=== PATIENT | female | born 1990 | race Caucasian/White ===

== ENCOUNTER 2017-03-28 08:55 | Inpatient (IN) | payer BC ==
[2017-03-28 10:04] VITALS: BMI 27.6
--- NOTE | 2017-03-28 11:09 | HP ---
COWS - Scale Resting Pulse: 0= [place] 80 or Below Sweatin= Beads of Sweat on Face Restless Observation: 3= Extraneous Movement Pupil Size: 0= Normal to Room Light Bone or Joint Aches: 4=Acute Joint/Muscle Pain Runny Nose/ Eye Tearin= Nasal Congestion GI Upset > 30mins: 3= Vomiting/Diarrhea Tremor Observation: 1= Tremor [place], Not Seen Yawning Observation: 1= 1-2x During Session Anxiety or Irritability: 2=Irritable/Anxious Goose Flesh Skin: 0=Smooth Skin COWS Score: 18 CIWA Score - CIWA Score Nausea/Vomitin Muscle Tremors: 3 Anxiety: 4-Mod. Anxious/Guarded Agitation: 3 Paroxysmal Sweats: 1-Minimal Palms Moist Orientation: 0-Oriented Tacttile Disturbances: 3-Moderate Itch/Numb/Burn Auditory Disturbances: 0-None Visual Disturbances: 0-None Headache: 2-Mild CIWA-Ar Total Score: 21 Admission ROS BHS - HPI Chief Complaint: WITHDRAWAL SX FROM HEROIN Allergies/Adverse Reactions: Allergies Allergy/AdvReac Type Severity Reaction Status Date / Time No Known Allergies Allergy Verified 03/28/17 10:34 History of Present Illness: 26 Y/O H/FEMALE WITH A HX OF HEROIN, ALCOHOL AND MARIJUANA DEPENDENCE [place]. Exam Limitations: No Limitations - Ebola screening Have you traveled outside of the country in the last 21 days: No (N) Have you had contact with anyone from an Ebola affected area: No Have you been sick,other than usual withdrawal symptoms: No Do you have a fever: No - Review of Systems Constitutional: Chills, Night Sweats, Changes in sleep EENT: reports: Blurred Vision, Tearing, Nose Congestion Respiratory: reports: No Symptoms reported Cardiac: reports: Lightheadedness GI: reports: Constipated, Diarrhea, Nausea, Poor Fluid Intake, Vomiting, Indigestion : reports: Burning, Dysuria Musculoskeletal: reports: Back Pain, Joint Pain, Muscle Pain Neuro: reports: Headache, Tremors, Dizziness Endocrine: reports: No Symptoms Reported Hematology: reports: Anemia Psychiatric: reports: Orientated x3, Anxious, Depressed Other Systems: Reviewed and Negative Patient History - Patient Medical History Hx Anemia: Yes Hx Asthma: No Hx Chronic Obstructive Pulmonary Disease (COPD): No Hx Cardiac Disorders: No Hx Hypertension: No Hx Hypercholesterolemia: No HX Cerebrovascular Accident: No Hx Seizures: No Hx Diabetes: No Hx Gastrointestinal Disorders: Yes (acid reflux) Hx Genitourinary Disorders: No Hx Sexually Transmitted Disorders: No Hx Renal Disease (ESRD): No Hx Depression: Yes Hx Suicide Attempt: No (DENIES) Hx Schizophrenia: No - Patient Surgical History Past Surgical History: No Hx Neurologic Surgery: No Hx Cataract Extraction: No Hx Cardiac Surgery: No Hx Lung Surgery: No Hx Breast Surgery: No Hx Breast Biopsy: No Hx Abdominal Surgery: No Hx Appendectomy: No Hx Cholecystectomy: No Hx Genitourinary Surgery: No Hx Section: No Hx Orthopedic Surgery: No Hx Hysterectomy: No Anesthesia Reaction: No - PPD History Previous Implant?: Yes Documented Results: Negative w/o proof Implanted On Prior R Admission?: No PPD to be Administered?: Yes - Reproductive History Patient is a Female of Child Bearing Age (11 -55 yrs old): Yes Last Menstrual Period: 03/13/17 Patient : No - Smoking Cessation Smoking history: Current every day smoker Have you smoked in the past 12 months: Yes Aproximately how many cigarettes per day: 3 Hx Chewing Tobacco Use: No Initiated information on smoking cessation: Yes 'Breaking Loose' booklet given: 03/28/17 - Substance & Tx. History Hx Alcohol Use: Yes (VODKA) Hx Substance Use: Yes (HEROIN/MARIJUANA) Substance Use Type: Alcohol, Heroin, Marijuana Hx Substance Use Treatment: No - Substances Abused Heroin Route: Inhalation Frequency: Daily Amount used: 4 bags Age of first use: 23 Date of Last Use: 03/27/17 Alcohol-vodka Route: Oral Frequency: Daily Amount used: 1/2 pt. Age of first use: 14 Date of Last Use: 03/25/17 Marijuana Route: Smoking Frequency: Daily Amount used: $50 Age of first use: 14 Date of Last Use: 03/28/17 Family Disease History - Family Disease History Family History: Denies Admission Physical Exam BHS - Vital Signs Vital Signs: Vital Signs - 24 hr 03/28/17 10:01 Temperature 97.6 F Pulse Rate 73 Respiratory 18 Rate Blood Pressure 117/83 - Physical General Appearance: Yes: Moderate Distress, Irritable, Anxious HEENTM: Yes: EOMI, Normocephalic, TERE, Pharynx Normal Respiratory: Yes: Chest Non-Tender, Lungs Clear, Normal Breath Sounds, No Respiratory Distress Neck: Yes: No masses,lesions,Nodules, Supple, Trachea in good position Breast: Yes: Breast Exam Deferred Cardiology: Yes: Regular Rhythm, Regular Rate, S1, S2 Abdominal: Yes: Normal Bowel Sounds, Non Tender, Flat, Soft Genitourinary: Yes: Other (N/C) Back: Yes: Within Normal Limits Musculoskeletal: Yes: full range of Motion, Gait Steady Extremities: Yes: Normal Range of Motion, Non-Tender Neurological: Yes: ruffling hemmer automatic II-XII NML intact, Fully Oriented, Alert, Motor Strength 5/5 Integumentary: Yes: Dry, Warm Lymphatic: Yes: Within Normal Limits - Diagnostic (1) Alcohol dependence with uncomplicated withdrawal Current Visit: Yes Status: Acute (2) Opioid dependence with withdrawal Current Visit: Yes Status: Acute (3) Cannabis dependence, uncomplicated Current Visit: Yes Status: Acute (4) GERD (gastroesophageal reflux disease) Current Visit: Yes Status: Chronic Qualifiers: Esophagitis presence: esophagitis presence not specified Qualified Code(s) : K21.9 - Gastro-esophageal reflux disease without esophagitis Cleared for Admission [facility] - Detox or Rehab [facility] Level of Care: Medically Managed Detox Regimen/Protocol: Methadone/Valium [facility] Breath Alcohol Content Breath Alcohol Content: 0 Urine Pregancy Test - Result Urine Test Results: Negative- NO Line Present Urine Drug Screen - Results Drug Screen Negative: No Urine Drug Screen Results: THC-Marijuana, OPI-Opiates, BZO-Benzodiazepines, MTD- Methadone, OXY-Oxycodone
[2017-03-28] MEDS ORDERED: guaiFENesin/D-METHORPHAN HB 10 ML UNIT-DOSE CUPS PO PRN (11:23)
[2017-03-28] MEDS ORDERED: IBUPROFEN 400 MG TABLET (FP) PO PRN (11:23)
[2017-03-28] MEDS ORDERED: ACETAMINOPHEN 325 MG TABLET (FP) PO PRN (11:23)
[2017-03-28] MEDS ORDERED: LOPERAMIDE HCL 2 MG CAPSULE PO PRN (11:23)
[2017-03-28] MEDS ORDERED: P-EPHED 60MG/TRIPROLIDI 2.5MG TABLET PO PRN (11:23)
[2017-03-28] MEDS ORDERED: NICOTINE POLACRILEX 2 MG GUM BUC PRN (11:23)
[2017-03-28] MEDS ORDERED: MAG HYDROX/AL HYDROX/SIMETH 30 ML UNIT-DOSE CUP PO PRN (11:23)
[2017-03-28] MEDS ORDERED: MAGNESIUM CITRATE 300 ML BOTTLE PO PRN (11:23)
[2017-03-28] MEDS ORDERED: MAGNESIUM HYDROX 2400MG/30ML ORAL SUSPENSION 30 ML CUP PO PRN (11:23)
[2017-03-28] MEDS ORDERED: MENTHOL/PHENOL 1 EACH UD MM PRN (11:23)
[2017-03-28] MEDS ORDERED: diazePAM 5 MG TABLET PO PRN (11:23)
[2017-03-28] MEDS ORDERED: diazePAM 5 MG TABLET PO ONE (11:38)
[2017-03-28] MEDS ORDERED: METHADONE HCL 10 MG TABLET (FOR DETOX USE ONLY) PO ONE ×2 (11:38→23:00)
[2017-03-28] MEDS: NICOTINE 14 MG/24 HOURS TOPICAL PATCH TD SCH (12:29)
[2017-03-28] MEDS: diazePAM 5 MG TABLET PO SCH ×2 (13:01→22:26)
[2017-03-28] MEDS ORDERED: COLLOIDAL OATMEAL 1 BAR EACH TP PRN (13:06)
--- NOTE | 2017-03-28 15:36 | EKG ---
Test Reason : Blood Pressure : / mmHG Vent. Rate : 066 BPM Atrial Rate : 066 BPM P-R Int : 172 ms QRS Dur : 094 ms QT Int : 416 ms P-R-T Axes : 065 -42 032 degrees QTc Int : 436 ms NORMAL SINUS RHYTHM WITH SINUS ARRHYTHMIA POSSIBLE LEFT ATRIAL ENLARGEMENT LEFT AXIS DEVIATION ABNORMAL ECG NO PREVIOUS ECGS AVAILABLE Confirmed by HATTIE COOPER MD ([id number]) on 03/28/2017 3:35:58 PM Referred By: Confirmed By:HATTIE COOPER MD
[2017-03-28 15:40] LABS: HEMATOCRIT 38.8 % (32.4-45.2); HEMOGLOBIN 12.8 GM/dL (10.7-15.3); MCH 29.6 pg (25.7-33.7); MCHC 32.9 g/dl (32.0-36.0); MEAN CELL VOLUME 89.8 fl (80-96); MEAN PLT VOLUME 8.9 fl (7.5-11.1); PLATELET COUNT 199 K/MM3 (134-434); RBC 4.32 M/mm3 (3.60-5.2); RDW 14.3 % (11.6-15.6); WHITE BLOOD COUNT 7.1 K/mm3 (4.0-10.0)
[2017-03-28 15:50] LABS: ALBUMIN 4.1 g/dl (3.4-5.0); ANION GAP 7 (8-16); BLOOD UREA NITROGEN 11 mg/dL (7-18); CALCIUM 9.5 mg/dL (8.5-10.1); CHLORIDE 101 mmol/L (98-107); CO2 29 mmol/L (21-32); GLUCOSE,RANDOM 111 mg/dL (74-106); POTASSIUM 3.6 mmol/L (3.5-5.1); SODIUM 137 mmol/L (136-145)
[2017-03-28 15:54] LABS: ALK PHOS 59 U/L (45-117); BILIRUBIN,TOTAL 0.6 mg/dL (0.2-1.0); CREATININE 0.9 mg/dL (0.55-1.02); SGOT/AST 20 U/L (15-37); SGPT/ALT 24 U/L (12-78); TOT PROT 7.3 g/dl (6.4-8.2)
[2017-03-28 15:57] LABS: URINE APPEARANCE CLOUDY; URINE BILIRUBIN NEGATIVE (NEGATIVE); URINE BLOOD NEGATIVE (NEGATIVE); URINE COLOR YELLOW; URINE GLUCOSE (UA) NEGATIVE (NEGATIVE); URINE KETONE 1+ (NEGATIVE); URINE NITRITE NEGATIVE (NEGATIVE); URINE PROTEIN NEGATIVE (NEGATIVE); URINE UROBILINOGEN NEGATIVE mg/dL (0.2-1.0)
[2017-03-28] MEDS: HYDROCORTISONE 1% TOPICAL CREAM 30 GM TUBE TP SCH ×2 (16:00→22:25)
[2017-03-28 16:14] LABS: URINE LEUK ESTERASE 3+ (NEGATIVE)
--- NOTE | 2017-03-28 17:41 | CONSULT ---
[facility] Psychiatric Consult - Data Date of interview: 03/28/17 Admission source: [facility] Identifying data: Pt. is a 26 year old female, single, mother of four, and currently unemployed. This is patient's first admission to [facility]. Pt. admitted to to for heroin, alcohol, and marijuana dependence. Substance Abuse History: Following information confirmed by Tracy Prescott: Smoking Cessation. Smoking history: Current every day smoker. Have you smoked in the past 12 months: Yes. Aproximately how many cigarettes per day: 3. Hx Chewing Tobacco Use: No. Initiated information on smoking cessation: Yes. 'Breaking Loose' booklet given: 03/28/17. - Substance & Tx. History. Hx Alcohol Use: Yes (VODKA). Hx Substance Use: Yes (HEROIN/MARIJUANA). Substance Use Type: Alcohol, Heroin, Marijuana. Hx Substance Use Treatment: No. - Substances Abused. Heroin. Route: Inhalation. Frequency: Daily. Amount used: 4 bags. Age of first use: 23. Date of Last Use: 03/27/17. Alcohol-vodka. Route: Oral. Frequency: Daily. Amount used: 1/2 pt. Age of first use: 14. Date of Last Use: 03/25/17. Marijuana. Route: Smoking. Frequency: Daily. Amount used: $50. Age of first use: 14. Date of Last Use: 03/28/17 Medical History: Anemia, Acid reflux Psychiatric History: Pt. denies h/o psychatric hospitalizations, suicide attempts and OPC. Pt. self reports insomnia and depression. Physical/Sexual Abuse/Trauma History: Denies. Mental Status Exam - Mental Status Exam Alert and Oriented to: Time, Place, Person Cognitive Function: Good Patient Appearance: Well Groomed Mood: Sad Affect: Flat Patient Behavior: Sedated Speech Pattern: Appropriate Voice Loudness: Normal Thought Process: Goal Oriented Thought Disorder: Not Present Hallucinations: Denies Suicidal Ideation: Denies Homicidal Ideation: Denies Insight/Judgement: Poor Sleep: Poorly Appetite: Fair Muscle strength/Tone: Normal Gait/Station: Normal Psychiatric Findings - Problem List ([place] 1, 2,3) (1) Opioid dependence with withdrawal Current Visit: Yes Status: Acute (2) Alcohol dependence with uncomplicated withdrawal Current Visit: Yes Status: Acute (3) Cannabis dependence, uncomplicated Current Visit: Yes Status: Acute (4) Insomnia Current Visit: Yes Status: Acute - Initial Treatment Plan Initial Treatment Plan: Psychoeducation provided. Detoxification in progress. Trazodone 50mg qhs ordered for insomnia. Benefits and side effects discussed.Verbal consent given. Will continue to monitor.
[2017-03-28] MEDS ORDERED: traZODone HCL 50 MG TABLET (FP) PO SCH (22:00)
[2017-03-28] MEDS ORDERED: THIAMINE HCL 100 MG TABLET (FP) PO SCH (22:00)
[2017-03-29] MEDS: diazePAM 5 MG TABLET PO SCH ×2 (05:57→13:51)
[2017-03-29 06:38] VITALS: TEMP 97.7
--- NOTE | 2017-03-29 06:42 | PN ---
[facility] Progress Note Note: responded to rapid respond patient found on the floor near nursing station with seizure movement four extremities no post ictal period,pulse ox 97 alert bgm 90 bp 158/60.p 139,r18,t 97.9 no injury noted heent normal lung clear abdomen soft,no distension no pain or tenderness movement all extremities pulse oximeter ativan 2 mgs im given seizure lasted 2 mins, impression seizure possible withdrawal opioid dependence with withdrawal alcohol dependence with withdrawal gerd patient to be transferred to er at [facility] for evaluation and treatment,to be transported by [facility],spoke with Kian Bolanos at [facility]
--- NOTE | 2017-03-29 07:58 | PN ---
S Progress Note Note: patient was found on the floor,having seizure in response to rapid respond,no witness of fall,will place patient on fall protocol 2,fall precaution
[2017-03-29 08:07] LABS: SICKLE CELL SCREEN NEGATIVE (NEGATIVE)
[2017-03-29 09:14] VITALS: BP 158/60; PULSE 132
[2017-03-29] MEDS ORDERED: METHADONE HCL 10 MG TABLET (FOR DETOX USE ONLY) PO SCH (10:00)
[2017-03-29] MEDS ORDERED: PRENATAL VITAMINS W/ FOLIC ACID TABLET (FP) PO SCH (10:00)
[2017-03-29] MEDS: NICOTINE 14 MG/24 HOURS TOPICAL PATCH TD SCH (11:02)
[2017-03-29] MEDS: HYDROCORTISONE 1% TOPICAL CREAM 30 GM TUBE TP SCH (11:02)
[2017-03-29] MEDS ORDERED: FLU VACCINE QUAD 60 MCG/0.5 ML (MDV 17-18) IM ONE (12:00)
[2017-03-30] MEDS ORDERED: METHADONE HCL 5 MG TABLET (FOR DETOX USE ONLY) PO SCH (10:00)
[2017-03-30] MEDS ORDERED: diazePAM 5 MG TABLET PO SCH (10:00)
--- NOTE | 2017-03-30 18:36 | DS ---
[facility] Detox Discharge Summary Admission Date: 03/28/17 Discharge Date: 03/29/17 - History Present History: Alcohol Dependence, Opioid Dependence, Sedative Dependence Additional Comments: PATIENT WAS TANSFERRED AND ADMITTED TO [facility] DETOX FOR "SEIZURES SHAHRAM ACTIVITY BUT NEEDED TO BE ADMITTED BECUSE SHE WAS A HAM TO HERSELF AND OTHERS. Pertinent Past History: ANXIETY, DEPRESSION, INSOMNIA, NICOTINE DEPENDENCD - Physical Exam Results Vital Signs: Vital Signs Temperature 97.7 F 03/29/17 06:30 Pulse Rate 132 H 03/29/17 06:30 Respiratory Rate 26 H 03/29/17 06:30 Blood Pressure 158/60 03/29/17 06:30 O2 Sat by Pulse Oximetry (%) Laboratory Tests 03/28/17 03/28/17 03/28/17 11:00 11:30 11:30 WBC 7.1 RBC 4.32 Hgb 12.8 Hct 38.8 MCV 89.8 MCH 29.6 MCHC 32.9 RDW 14.3 Plt Count 199 MPV 8.9 Sickle Cell Screen Negative Sodium 137 Potassium 3.6 Chloride 101 Carbon Dioxide 29 Anion Gap 7 L BUN 11 Creatinine 0.9 Creat Clearance w eGFR > 60 POC Glucometer Random Glucose 111 H Calcium 9.5 Total Bilirubin 0.6 AST 20 ALT 24 Alkaline Phosphatase 59 Total Protein 7.3 Albumin 4.1 Urine Color Urine Appearance Urine pH Ur Specific [place] Urine Protein Urine Glucose (UA) Urine Ketones Urine Blood Urine Nitrite Urine Bilirubin Urine Urobilinogen RPR Titer HIV 1&2 Antibody Screen Negative HIV P24 Antigen Negative 03/28/17 03/28/17 03/29/17 11:30 13:00 06:26 WBC RBC Hgb Hct MCV MCH MCHC RDW Plt Count MPV Sickle Cell Screen Sodium Potassium Chloride Carbon Dioxide Anion Gap BUN Creatinine Creat Clearance w eGFR POC Glucometer 94 Random Glucose Calcium Total Bilirubin AST ALT Alkaline Phosphatase Total Protein Albumin Urine Color Yellow Urine Appearance Cloudy Urine pH 6.0 Ur Specific [place] 1.021 Urine Protein Negative Urine Glucose (UA) Negative Urine Ketones 1+ H Urine Blood Negative Urine Nitrite Negative Urine Bilirubin Negative Urine Urobilinogen Negative RPR Titer Nonreactive HIV 1&2 Antibody Screen HIV P24 Antigen Pertinent Admission Physical Exam Findings: CANDELARIA SX - Treatment Hospital Course: Detox Protocol Followed Patient has Accepted a Rehab Referral to: NO - Medication Discharge Medications: Ambulatory Orders Unobtainable [Unobtainable] 03/29/17 - Diagnosis (1) Agitation states as acute reaction to exceptional (gross) stress Status: Acute (2) Delirium Status: Acute (3) Alcohol dependence with uncomplicated withdrawal Status: Acute (4) Cannabis dependence, uncomplicated Status: Acute (5) Opioid dependence with withdrawal Status: Acute (6) GERD (gastroesophageal reflux disease) Status: Chronic Qualifiers: Esophagitis presence: esophagitis presence not specified Qualified Code(s) : K21.9 - Gastro-esophageal reflux disease without esophagitis - AMA Did Patient Leave Against Medical Advice: No (SHOULD RETURN TO [facility] TO COMPLEE DETOX WHE MEDICALLYS TABLE)
[2017-04-01] MEDS ORDERED: diazePAM 5 MG TABLET PO SCH (10:00)
[2017-04-01] MEDS ORDERED: METHADONE HCL 10 MG TABLET (FOR DETOX USE ONLY) PO SCH (10:00)
[2017-04-02] MEDS ORDERED: METHADONE HCL 5 MG TABLET (FOR DETOX USE ONLY) PO SCH (06:00)
== END 2017-03-29 21:05 | disposition short-term general hospital (02) | DRG 773 ==
LOC: YASAS 08:55 → Y6N 11:37
PROVIDERS: ADMIT Internal Medicine; ATTEND Internal Medicine
PROC: HZ2ZZZZ Detoxification Services for Substance Abuse Treatment (ICD-10-PCS; principal; 2017-03-28)
DX: F11.23 Opioid dependence with withdrawal (principal); F10.230 Alcohol dependence with withdrawal, uncomplicated; F12.20 Cannabis dependence, uncomplicated; R41.0 Disorientation, unspecified; R45.1 Restlessness and agitation; K21.9 Gastro-esophageal reflux disease without esophagitis
CPT/HCPCS: 36415; 80053; 81003; 81015; 85027; 85660; 86593; 87389; 93005; 93010

== ENCOUNTER 2017-03-29 07:17 | Inpatient (IN) | payer BC ==
[2017-03-29] MEDS ORDERED: LORazepam 2 MG/ML SDV VIAL ONE ×4 (07:26→13:42)
[2017-03-29] MEDS ORDERED: HALOPERIDOL LACTATE 5 MG/ML ONE ×3 (07:26→13:35)
[2017-03-29] MEDS ORDERED: HALOPERIDOL LACTATE 5 MG/ML IM ONE ×3 (07:39→13:41)
[2017-03-29 08:21] LABS: BASO % 0.8 % (0-2.0); EOS % 1.1 % (0-4.5); HEMATOCRIT 43.5 % (32.4-45.2); LYMPH % 38.1 % (8-40); MCH 28.9 pg (25.7-33.7); MCHC 32.3 g/dl (32.0-36.0); MEAN CELL VOLUME 89.5 fl (80-96); MEAN PLT VOLUME 8.6 fl (7.5-11.1); MONO % 7.4 % (3.8-10.2); NEUT % 52.6 % (42.8-82.8); PLATELET COUNT 234 K/MM3 (134-434); RBC 4.86 M/mm3 (3.60-5.2); RDW 14.4 % (11.6-15.6); WHITE BLOOD COUNT 7.1 K/mm3 (4.0-10.0)
--- NOTE | 2017-03-29 08:41 | PDOC ---
History of Present Illness - General Chief Complaint: Seizure Stated Complaint: SEIZURE Time Seen by Provider: 03/29/17 07:37 History Source: Patient Exam Limitations: Clinical Condition - History of Present Illness Initial Comments: 03/29/17 08:44 Patient is a 26F with history of alcohol and heroin abuse here today complaining of a seizure while in rehab. Patient reportedly fell to the floor and had seizure like activity with no post-ictal period. Vitals stable, sugar normal. While in the ED, patient exhibited bizarre behavior including inducing vomiting with her hand and ambulating around the ED after taking her pants off. Patient complained of abdominal pain. Unable to obtain further history due to clinical condition. 5 versed IM given in the field. Past History - Past Medical History Allergies/Adverse Reactions: Allergies Allergy/AdvReac Type Severity Reaction Status Date / Time No Known Allergies Allergy Verified 03/29/17 09:00 Home Medications: Ambulatory Orders Unobtainable [Unobtainable] 03/29/17 Anemia: Yes Asthma: No Cardiac Disorders: No CVA: No COPD: No Diabetes: No GI Disorders: Yes (acid reflux) Disorders: No HTN: No Hypercholesterolemia: No Kidney Stones: No Seizures: No - Surgical History Abdominal Surgery: No Appendectomy: No Cardiac Surgery: No Cholecystectomy: No Lung Surgery: No Neurologic Surgery: No Orthopedic Surgery: No - Suicide/Smoking/Psychosocial Hx Smoking History: Unknown if ever smoked Have you smoked in the past 12 months: Yes Number of Cigarettes Smoked Daily: 3 Information on smoking cessation initiated: No 'Breaking Loose' booklet given: 03/28/17 Hx Alcohol Use: Yes (VODKA) Drug/Substance Use Hx: Yes (HEROIN/MARIJUANA) Substance Use Type: Alcohol, Heroin, Marijuana Hx Substance Use Treatment: No Review of Systems - Review of Systems Able to Perform ROS?: No (2/2 clinical condition) *Physical Exam - Vital Signs Last Vital Signs Temp Pulse Resp BP Pulse Ox 120 H 26 H 138/90 100 03/29/17 07:20 03/29/17 07:20 03/29/17 07:20 03/29/17 07:20 - Physical Exam Comments: 03/29/17 08:48 GENERAL: Awake, alert, in acute distress HEAD: No signs of trauma, normocephalic, atraumatic EYES: PERRLA, EOMI, sclera anicteric, conjunctiva clear ENT: Auricles normal inspection, hearing grossly normal, nares patent, oropharynx clear without exudates. Moist mucosa LUNGS: No distress, speaks full sentences, clear to auscultation bilaterally HEART: Regular rate and rhythm, normal S1 and S2, no murmurs, rubs or gallops, peripheral pulses normal and equal bilaterally. ABDOMEN: Soft, nontender, normoactive bowel sounds. No guarding, no rebound. No masses EXTREMITIES: Normal inspection, Normal range of motion, no edema. No clubbing or cyanosis. NEUROLOGICAL: Cranial nerves II through XII grossly intact. Normal speech, normal gait, no focal sensorimotor deficits SKIN: Warm, Dry, normal turgor, no rashes or lesions noted. Procedures - Intubation Time of Intubation: 14:30 Intubation Method: orotracheal Blade used: Mac Tube Size (Fr): 7.0 Medications: Etomidate, Succinylcholine Tube position @ lip (cm): 22 Tube position confirmed by: Direct visualization, CO2 detector, Chest x-ray, Breath sounds Breath Sounds after Intubation: equal Intubation Complications: no complications Post Intubation Xray: Yes (appropriately placed) ED Treatment Course - LABORATORY CBC & Chemistry Diagram: 03/29/17 07:30 03/29/17 07:30 - RADIOLOGY Radiology Studies Ordered: Category Date Time Status ABDOMEN & PELVIS CT W/O CONTR [CT] Stat CT Scan 03/29/17 08:[address] WITHOUT CONTRAST [CT] Stat CT Scan 03/29/17 08:09 Ordered Medical Decision Making - Critical Care Time Total Critical Care Time (minutes): 90 Critical Care Statement: The care of this patient involved high complexity decision making to prevent further life threatening deterioration of the patient 's condition and/or to evaluate & treat vital organ system(s) failure or risk of failure. - Medical Decision Making 03/29/17 08:51 26F with history of alcohol and heroin abuse here today with altered mental status. Vital signs stable, notable for tachycardia. Patient causing self harm by inducing vomiting. Placed in restraints, given 5 haldol IM and 2 ativan IM. Patient remained agitated, IV access placed, labs drawn. Given additional 2 ativan IV. Remained agitated. EKG done, showed normal QTc interval. Given addition 5 haldol IM and 2 ativan IV. Patient sedated. EKG shows normal sinus rhythm, normal rate, left axis deviation, messy baseline due to patient movement. Questionable st depression in II, V4, V5. No st elevations. 03/29/17 09:58 Laboratory Tests 03/29/17 03/29/17 03/29/17 07:30 07:30 07:30 WBC 7.1 Hgb 14.0 Hct 43.5 Plt Count 234 Sodium 138 Potassium 3.9 BUN 7 D Creatinine 0.9 Lactic Acid Serum , Qual Negative Alcohol, Quantitative 03/29/17 03/29/17 07:30 07:30 WBC Hgb Hct Plt Count Sodium Potassium BUN Creatinine Lactic Acid 3.3 H* Serum , Qual Alcohol, Quantitative < 5.0 CBC normal. CMP normal. Lactate positive to 3.3. Alcohol negatie. Preg negative. Trop, tox, CTs pending. 03/29/17 10:10 Laboratory Tests 03/29/17 07:30 Troponin I < 0.02 Trop negative. 03/29/17 12:[address] negative. Abdominal/pelvis CT shows no right kidney, otherwise normal. Patient through herself on the floor, simulating another seizure. Placed in restraints given more medication. 03/29/17 14:54 Patient was given methadone in order to manage her withdrawal in attempt to placate her. Was not successful. Patient broke restraints multiple times. Multiple attempts at sedation were attempted, including 14mg total of ativan and 10mg of haldol in total. Patient was still agitated and a risk to herself and staff. Threatened and bit at staff. Patient was goal oriented during this time and not simply confused. Patient was RSI for her safety with 20 etomidate and 100 succ. 7.0 tube placed 22 at the lip. Confirmed with ETCO2 and bilateral breath sounds. Confirmed with CXR. Sedated with propofol drip. Admitted to the ICU via Tracy Moffett. 03/29/17 15:[address] Hendrix. *DC/Admit/Observation/Transfer Diagnosis at time of Disposition: icu admit, Delirium - Discharge Dispostion Condition at time of disposition: Critical - Referrals - Patient Instructions - Post Discharge Activity
[2017-03-29 09:06] LABS: ALCOHOL < 5.0 mg/dl (0-5)
[2017-03-29 09:09] LABS: ALBUMIN 4.3 g/dl (3.4-5.0); ANION GAP 9 (8-16); BILIRUBIN,TOTAL 0.8 mg/dL (0.2-1.0); BLOOD UREA NITROGEN 7 mg/dL (7-18); CALCIUM 9.3 mg/dL (8.5-10.1); CHLORIDE 106 mmol/L (98-107); CO2 23 mmol/L (21-32); CREATININE 0.9 mg/dL (0.55-1.02); GLUCOSE,RANDOM 92 mg/dL (74-106); POTASSIUM 3.9 mmol/L (3.5-5.1); SGOT/AST 16 U/L (15-37); SGPT/ALT 24 U/L (12-78); SODIUM 138 mmol/L (136-145); TOT PROT 7.5 g/dl (6.4-8.2)
[2017-03-29 09:10] LABS: ALK PHOS 67 U/L (45-117)
[2017-03-29] MEDS ORDERED: SODIUM CHLORIDE 0.9% 1000 ML INFUS.BAG IV ONE (10:00)
[2017-03-29 10:11] LABS: ACETAMINOPHEN < 2.000 ug/ml (10.0-30.0); SALICYLATE < 4.0 mg/dl (0.0-30.0)
--- NOTE | 2017-03-29 11:15 | PDOC ---
Attending Attestation - HPI HPI: 03/29/17 11:22 The patient is a 26 year old female with a significant PMH of opioid and alcohol abuse, now at [facility], who presents to the emergency department via EMS after being found on the floor with pseudo-seizure like activity secondary to alcohol/opioid withdrawal that lasted approximately 2 minutes early this morning. As per [facility], there was no postictal period and no injury noted. The patient received 5mL of Versed on EMS but continued to be agitated. The patient today is complaining of nausea and abdominal pain. At presentation, the patient is not following commands or answering questions appropriately. Allergies: NKA Past surgical history: None reported. Social history: Alcohol and opioid use, at [facility]. No reported cigarette use. - Physicial Exam PE: 03/29/17 11:23 Vitals: Triage vital signs reviewed General Appearance: Well nourished, well developed Head: Atraumatic Eyes: Pupils equal reactive round, extraocular movement intact Neck: Supple; No nuchal rigidity Chest Wall: Nontender Cardiac: Regular rate and rhythm, no murmurs, no rubs, no gallops Lungs: Clear to auscultation bilateral, good air movement bilaterally Abdomen: Soft, nondistended, normal bowel sounds, nontender to palpation Genitourinary: Extremities: Full range of motion to all extremities, no cyanosis, clubbing, or edema Skin: Warm and dry, no rashes or lesions, no rash, no petechiae Neuro: (+) Alcohol/drug withdrawal with pseudo-seizure activity. Cranial Nerves 2-12 grossly intact, Strength intact to all extremities, Sensation intact to all extremities, gait normal Psych: (+) Agitated. (+) Not following commands. - Medical Decision Making 03/29/17 11:23 The patient is a 26 year old female with a significant PMH of opioid and alcohol abuse, now at [facility], who presents to the emergency department via EMS after being found on the floor with pseudo-seizure like activity that lasted approximately 2 minutes early this morning. Plan Psych consult Labs: Drug screen, HCG, UA Cardio: EKG Meds: Haloperidol injection, Ativan, Normal saline Imaging: Abdomen and Pelvis CT w/o contrast Reported by: Dr. Montero Reviewed by: Dr. Tolentino Impression: No definite CT findings of acute pathology are identified. Imaging: Head CT w/o contrast Reported by: Dr. Montero Reviewed by: Dr. Tolentino Impression: Negative exam. No discrete noncontrast CT pathology. <Kristina Keith - Last Filed: 03/29/17 15:55> - Resident Resident Name: Shreyas Asencio - ED Attending Attestation I have performed the following: I have examined & evaluated the patient, The case was reviewed & discussed with the resident, I agree w/resident's findings & plan, Exceptions are as noted - Critical Care Time Total Critical Care Time: 145 Critical Care Statement: The care of this patient involved high complexity decision making to prevent further life threatening deterioration of the patient 's condition and/or to evaluate & treat vital organ system(s) failure or risk of failure. - Medical Decision Making Patient with severe agitation. Several attempts of made to calm patient down with medications unsuccessfully. Multiple pseudosiezures, (they stop immediately when talking to patient) She has attempted several times to bite staff self-induced vomiting vomit on staff members. Because of this self- injurious behavior and attempts to injure staff she has also required physical restraints. Multiple attempts have been made by staff using medications to calm patient down unsuccessfully. At this time patient has been seen and evaluated by psychiatry. There is no acute psychiatric illness requiring inpatient psychiatric hospitalization at this time per psychiatric consultation. Her agitation and behavioral disturbances are most likely secondary to withdrawal / drug seeking behavior. She is not safe for transfer back to [facility]. At this point she'll require medical admission for PRN Ativan. Regarding her abdominal pain patient states she has had this abdominal pain for a while. Patient states that whenever she withdraws from heroin she often has similar abdominal pain. She is constantly requesting narcotic pain medication. We have performed a CAT scan of her abdomen there were no acute findings. Reevaluation: Patient asked to go to the bathroom was escorted by tech on watch after leaving bathroom patient threw herself on floor at 1227pm. No head injury. I help the pt up and escorted her to bed. No injuries identified Reevaluation: Patient still complaining her stomach hurts requesting her methadone. In an attempt to de-escalate the situation, and possibly treat the withdrawal component of her pain, her daily dose of methadone was ordered Reevaluation: Despite receiving her daily methadone patient continued to demand pain medication became verbally and physically aggressive towards staff again, then attempted to bite it security administrator and punch staff. Additional 4 mg Ativan ordered additional 5 mg Haldol IM ordered Reevaluation 1:45 PM despite multiple attempts at medications to calm patient, patient remains agitated, high risk of harm to self and others. Additional Ativan ordered At this time patient has received a total of 15 mg of Haldol IM, and 12 mg of Ativan IV. The acute cause of her agitation and delirium appears to be secondary to withdrawal from alcohol and heroin. Her head CT, abdominal CT, and laboratory analysis are unremarkable her charts from the rehabilitation facility were reviewed. At this time despite our best attempts to calm patient and resolve her agitation and aggressiveness, her attempt to harm staff and injure herself by fighting and throwing herself around persists. She remains a high risk to herself and others. Decision made to intubate patient for sedation and to protect airway for safety of herself and others. Patient intubated successfully see procedure note We will admit to ICU for further management. Psychiatry follow-up. Reevaluation: Case discussed with rehab medicine, recommends Fentanyl to aid in opiod withdrawal component. Fentanyl gtt and bolus ordered 03/29/17 16:56 <Kehinde Tolentino - Last Filed: 03/29/17 17:04> Heart Score/ECG Review #1 03/29/17 11:23 EKG performed at [8:30] demonstrates rate of [101], rhythm of [tachycardic]. No T wave inversions, no ST elevations.Isolated ST depression in lead 2, V4 and V5. #2 03/29/17 15:57 EKG performed at [14:48] demonstrates rate of [104], rhythm of [tachycardic]. <Kristina Keith - Last Filed: 03/29/17 15:55>
[2017-03-29] MEDS ORDERED: METOCLOPRAMIDE HCL INJECTION 10 MG/2 ML VIAL IVPB ONE (11:24)
[2017-03-29] MEDS ORDERED: METOCLOPRAMIDE HCL INJECTION 10 MG/2 ML VIAL ONE (11:30)
--- NOTE | 2017-03-29 12:35 | CON.PSY ---
Psychiatry Consult Chief Complaint: Patient sent from [facility] for Pseudo Seizures.History of Pain med use. malka is a poor Historian.Displaying acute agitation and aggressive behaviour. Symptoms: reports: Impulsivity, Conduct Problems, Oppositionalism, Hyperactivity - Previous Psychiatric Treatment Outpatient: None, Less than 6 mos ago - Previous Substance Abuse Treatment Outpatient: Less than 6 mos ago Inpatient: Within the last 12 months - Reason for Previous Treatment Reason for Previous Treatment: Heroin or Other Narcotics, Prescription Drug, Other Drugs - Allergies Allergies: Allergies Allergy/AdvReac Type Severity Reaction Status Date / Time No Known Allergies Allergy Verified 03/29/17 09:00 - Current Living Status Usual Living Arrangement: Alone - Current Mental Status Evaluation Appearance: Disheveled Attitude: Belligerent - Affect Affect: Expansive Appropriateness: Not Appropriate - Mood Mood: Angry - Speech/Language Expressive: Coherent - Psychomotor Activity Psychomotor Activity: Agitated - Thought Process Thought Process: Intact - Thought Content Hallucinations: Absent Delusions: Absent - Self Perception Self Perception: No Impairment - Cognition Attention: Alert Orientation: Time Memory, Immediate Recall: Intact Memory, Short Term: 2/3 Memory, Remote with Promptin/3 - Concentration Serial Sevens Intact: No Simple Calculations Intact: No - Abstraction Judgement: Severely Impaired - Insight Insight: Impaired - Impulse Control Impulse Control: Severly Impaired - Suicidal Ideation Suicidal Ideation: No - Homicidal Ideation Homicidal Ideation: No Assessment/Plan 1) patient nay need admission to Medicine to Complete detox. 2) continue with ativan IM and Iv as needed. 3) Pain med seeking behaviour.
[2017-03-29] MEDS ORDERED: METHADONE HCL 10 MG TABLET PO ONE (12:53)
[2017-03-29] MEDS ORDERED: METHADONE HCL 10 MG TABLET ONE (13:02)
[2017-03-29] MEDS ORDERED: diazePAM CARPU-JECT 10 MG/2 ML DISP.SYRIN IVPUSH ONE (13:32)
[2017-03-29] MEDS ORDERED: ETOMIDATE 40 MG/20 ML VIAL IVPUSH ONE (13:58)
[2017-03-29] MEDS ORDERED: SUCCINYLCHOLINE CHLORIDE 200 MG/10 ML VIAL IVPUSH ONE ×2 (13:59→14:30)
[2017-03-29] MEDS ORDERED: RAPID SEQUENCE INTUBATION KIT NR ONE (14:03)
[2017-03-29] MEDS: PROPOFOL 1,000,000 MCG/100 ML VIAL IVPUSH SCH (14:15)
[2017-03-29] MEDS ORDERED: PROPOFOL 1,000,000 MCG/100 ML VIAL ONE (14:16)
--- NOTE | 2017-03-29 14:29 | HP ---
CHIEF COMPLAINT: PCP: HISTORY OF PRESENT ILLNESS: 26 year-old female with a PMH significant for polysubstance abuse, anemia, acid reflux, and depression. Patient presented to [facility] on 03/28/17 for detox. She was screened by Dr. Dee who observed patient at that time to be A&Ox3, sad mood, flat affect. This morning patient observed at [facility] to have psuedo- seizure type activity with no postictal period. Patient was transported to ED. While in the ED, patient complained of nausea and abdominal pain. She made numerous demands for pain medication. She was observed self-inducing vomiting with her hand. She ambulated around the ED after taking her pants off. She threw herself on the floor. She tried several times to bite and punch the staff. She had multiple pseudoseizures which stopped immediately when talking to the patient. She was seen by psychiatry Dr. Serra who recommended admission for detox. Dr. Serra also judged patient to be engaging in pain medication-seeking behavior. All attempts to calm the patient were unsuccessful , including Haldol IM 15mg (total) and Ativan IV 12mg (total), Her delirium, agitation, and withdrawal symptoms remained at such a heightened level that the decision was made to intubate the patient to protect her airway, for the safety of herself, and for the safety of others. Recent Travel: Unknown PAST MEDICAL HISTORY Polysubstance abuse PAST SURGICAL HISTORY: None reported Social History (taken from chart) Smoking: current every day Alcohol: daily vodka (last drink 03/25/17) Drugs: heroin (inhalation 4 bags daily last use 03/27/17), marijuana Family History: Allergies No Known Allergies Allergy (Verified 03/29/17 09:00) HOME MEDICATIONS: Home Medications Medication Instructions Recorded Unobtainable [Unobtainable] 03/29/17 REVIEW OF SYSTEMS Unobtainable PHYSICAL EXAMINATION Vital Signs - 24 hr 03/29/17 03/29/17 03/29/17 07:20 08:10 11:27 Pulse Rate 120 H Pulse Rate [ 92 H Apical] Pulse Rate [ 78 Left] Respiratory 26 H 16 18 Rate Blood Pressure 138/90 Blood Pressure 131/77 134/87 [Right Arm] O2 Sat by Pulse 100 100 100 Oximetry (%) GENERAL/NEURO: Sedated. Intubated. PULM: mechanical breath sounds CV: S1, S2, rrr ABD: soft, not tender, not distended, normoactive bowel sounds Upper ext: 2+ pulses, warm, well-perfused, no edema Lower ext: 2+ pulses, warm, well-perfused, no edema : recinos catheter, clear urine Laboratory Results - last 24 hr 03/29/17 03/29/17 03/29/17 07:30 07:30 07:30 WBC 7.1 RBC 4.86 Hgb 14.0 Hct 43.5 MCV 89.5 MCH 28.9 MCHC 32.3 RDW 14.4 Plt Count 234 MPV 8.6 Neutrophils % 52.6 Lymphocytes % 38.1 Monocytes % 7.4 Eosinophils % 1.1 Basophils % 0.8 Sodium 138 Potassium 3.9 Chloride 106 Carbon Dioxide 23 D Anion Gap 9 BUN 7 D Creatinine 0.9 Creat Clearance w eGFR > 60 Random Glucose 92 Lactic Acid Calcium 9.3 Total Bilirubin 0.8 D AST 16 ALT 24 Alkaline Phosphatase 67 Creatine Kinase 404 H Creatine Kinase Index 0.4 CK-MB (CK-2) 1.88 Troponin I < 0.02 Total Protein 7.5 Albumin 4.3 Serum , Qual Negative Salicylates Acetaminophen Alcohol, Quantitative 03/29/17 03/29/17 03/29/17 07:30 07:30 08:32 WBC RBC Hgb Hct MCV MCH MCHC RDW Plt Count MPV Neutrophils % Lymphocytes % Monocytes % Eosinophils % Basophils % Sodium Potassium Chloride Carbon Dioxide Anion Gap BUN Creatinine Creat Clearance w eGFR Random Glucose Lactic Acid 3.3 H* Calcium Total Bilirubin AST ALT Alkaline Phosphatase Creatine Kinase Cancelled Creatine Kinase Index CK-MB (CK-2) Troponin I Cancelled Total Protein Albumin Serum , Qual Salicylates < 4.0 Acetaminophen < 2.000 L Alcohol, Quantitative < 5.0 03/29/17 13:21 WBC RBC Hgb Hct MCV MCH MCHC RDW Plt Count MPV Neutrophils % Lymphocytes % Monocytes % Eosinophils % Basophils % Sodium Potassium Chloride Carbon Dioxide Anion Gap BUN Creatinine Creat Clearance w eGFR Random Glucose Lactic Acid 1.0 Calcium Total Bilirubin AST ALT Alkaline Phosphatase Creatine Kinase Creatine Kinase Index CK-MB (CK-2) Troponin I Total Protein Albumin Serum , Qual Salicylates Acetaminophen Alcohol, Quantitative ASSESSMENT/PLAN 26 year-old female with a PMH significant for polysubstance abuse, admitted for severe agitation and delirium secondary to acute alcohol and opiate withdrawal. Acute alcohol and opiate withdrawal --patient acknowledged recent alcohol and heroin use when screened at [facility] on 03/28 --urine tox positive for opiates, methadone, benzos, and marijuana --extreme agitation observed in ED --intubated and sedated to protect airway --propofol drip --psych consult --detox consult DVT prophylaxis: subq heparin Dispo: requires ICU level care. Full code. Dispo: Visit type - Emergency Visit Emergency Visit: Yes ED Registration Date: 03/29/17 Care time: The patient presented to the Emergency Department on the above date and was hospitalized for further evaluation of their emergent condition. - New Patient This patient is new to me today: Yes Date on this admission: 03/29/17 - Critical Care Critical Care patient: Yes Total Critical Care Time (in minutes): 35 Critical Care Statement: The care of this patient involved high complexity decision making to prevent further life threatening deterioration of the patient 's condition and/or to evaluate & treat vital organ system(s) failure or risk of failure.
--- NOTE | 2017-03-29 14:50 | CONSULT ---
Consult Detox [facility] Reason for Current Admission/Consult: polysubstance use and acute agitation Referred by:: Tracy Moffett NP - History History of Present Illness: 26 yo f with h/o polysubstance use was being detoxed at [facility] when she developed seizures like activity and was transferred to [facility] ED for evaluation wherre she became a danger to herself and others requiring chemical restraints and intubation in the ED. Unable to obtain any further history from patient at this time - History Source History Provided By: Patient, Medical Record, Caregiver Limitations to Obtaining History: Intubated - Alcohol/Substance Use Hx Alcohol Use: Yes (VODKA) Hx Substance Use: Yes (heroin) Hx Substance Use Treatment: Yes (detox [facility]) - Past Medical History ...LMP: 03/13/17 - Significant Medical Findings: 26 yo f with w opioid use diorder and chronic alcoholism transferred [facility] activity became a danger to herself and others requiring sedation and intubation in ED, now unresponsive to be transferred to ICU for monitoring. on fentanyl drip Assessment Plan - Diagnosis (1) Agitation states as acute reaction to exceptional (gross) stress Status: Acute (2) Alcohol dependence with uncomplicated withdrawal Status: Acute (3) Cannabis dependence, uncomplicated Status: Acute (4) Opioid dependence with withdrawal Status: Acute (5) GERD (gastroesophageal reflux disease) Status: Chronic Qualifiers: Esophagitis presence: esophagitis presence not specified Qualified Code(s) : K21.9 - Gastro-esophageal reflux disease without esophagitis - Plan Plan: chart reveiwed, imaging and labs reviewed, case discussed with medial team. Patient is being transferred to ICU for care, when extubated would restart alcohol and opioid detox from the beginning as she will have been receiving high doses of opioids and benzodiazepines for sedation. Will follow. David Morales MD [phone] - Medication Detox Regimen/Protocol: Not Applicable
[2017-03-29 14:52] LABS: ARTERIAL BLD GAS O2 SATURATION 99.5 % (90-98.9); ARTERIAL BLOOD GAS BASE EXCESS -1.8 meq/l (-2-2); ARTERIAL BLOOD GAS PCO2 38.2 mmHg (35-45); ARTERIAL BLOOD GAS pH 7.39 (7.35-7.45); CARBOXYHEMOGLOBIN 0.7 gm% (0.5-2.0)
[2017-03-29 14:55] LABS: ALLENS TEST POSITIVE
[2017-03-29] MEDS ORDERED: fentaNYL CITRATE/PF 1,000 MCG/20 ML AMPUL IVPUSH ONE ×2 (15:17→15:35)
[2017-03-29 15:19] LABS: URINE APPEARANCE CLEAR; URINE BILIRUBIN NEGATIVE (NEGATIVE); URINE BLOOD NEGATIVE (NEGATIVE); URINE COLOR LTYELLOW; URINE GLUCOSE (UA) NEGATIVE (NEGATIVE); URINE KETONE NEGATIVE (NEGATIVE); URINE LEUK ESTERASE TRACE (NEGATIVE); URINE NITRITE NEGATIVE (NEGATIVE); URINE PROTEIN NEGATIVE (NEGATIVE); URINE UROBILINOGEN NEGATIVE mg/dL (0.2-1.0)
[2017-03-29 15:20] LABS: HCG,QUALITATIVE URINE NEGATIVE
[2017-03-29] MEDS ORDERED: PROPOFOL 200 MG/20 ML VIAL IVPUSH ONE (15:20)
[2017-03-29 15:21] LABS: URINE MUCUS RARE
[2017-03-29 15:28] LABS: COCAINE, UR NEGATIVE ng/ml (CUTOFF=300); METHADONE, UR POSITIVE ng/ml (CUTOFF=300); OPIATES, URI POSITIVE ng/ml (CUTOFF=300); PHENCYCLIDINE,URINE NEGATIVE ng/ml (CUTOFF=25); URINE AMPHETAMINES NEGATIVE ng/ml (CUTOFF=500); URINE BARBITURATES NEGATIVE ng/ml (CUTOFF=200); URINE BENZODIAZEPINES POSITIVE ng/ml (CUTOFF=200)
[2017-03-29] MEDS ORDERED: fentaNYL CITRATE 250 MCG/5 ML VIAL ONE (15:42)
[2017-03-29] MEDS ORDERED: FENTANYL INJECTION 500 MCG in DEXTROSE 5%-WATER - 90 ML IVPB SCH (15:45)
[2017-03-29] MEDS: DEXTROSE 5%-NORMAL SALINE 1,000 ML IV SCH (16:08)
[2017-03-29 18:09] VITALS: BMI 25.0
--- NOTE | 2017-03-29 20:28 | CONSULT ---
Consult - text type - Consultation Consultation Note: PULM/CCM Pt seen ane examined in ICU CC: agitated delerium HPI: 26F with history of alcohol and heroin abuse presented to ED from [facility] rehab where she was undergoing detox (unclear how long she had been inhouse there) who is now intubated in ICU for inability to protect her airway. Pt had pseudo-sz, agitation, and combative behavior while at rehab, prompting EMS activation. Pt received benzos from EMS in an attempt to manage her. She was brought to ED still agitated, c/o abd pain, N/V. In ED pt normotensive, tachycardic, afebrile. She was kicking, biting, and thrashing. CT head, CTAP performed without finding acute pathology. She did not adequately respond to multiple doses of Ativan and Haldol. Labs were unrevealing. She was ultimately intubated by ED staff without difficulty. She was transferred to ICU for further care. She was sedated with propofol, VS wnl. Recent Travel: Unknown PAST MEDICAL HISTORY Polysubstance abuse PAST SURGICAL HISTORY: None reported Social History (taken from chart) Smoking: current every day Alcohol: daily vodka (last drink 03/25/17) Drugs: heroin (inhalation 4 bags daily last use 03/27/17), marijuana Family History: Allergies No Known Allergies Allergy (Verified 03/29/17 09:00) HOME MEDICATIONS: Home Medications Medication Instructions Recorded Unobtainable [Unobtainable] 03/29/17 REVIEW OF SYSTEMS Unobtainable due to clinical status PE: Gen: Deeply sedated, intubated young woman HEENT: Pin[place], reactive, orally intubated PULM: clear, anterior CV: RRR, no m/r/g appreciated ABD; soft, +BS Ext: w/w/p, no edema Neuro: withdrawal to noxious stimuli EKG: Sinus, normal axis, normal interval, isolated ST depression. QTC 433 CBCD WBC 7.1 K/mm3 (4.0-10.0) 03/29/17 07:30 RBC 4.86 M/mm3 (3.60-5.2) 03/29/17 07:30 Hgb 14.0 GM/dL (10.7-15.3) 03/29/17 07:30 Hct 43.5 % (32.4-45.2) 03/29/17 07:30 MCV 89.5 fl (80-96) 03/29/17 07:30 MCHC 32.3 g/dl (32.0-36.0) 03/29/17 07:30 RDW 14.4 % (11.6-15.6) 03/29/17 07:30 Plt Count 234 K/MM3 (134-434) 03/29/17 07:30 MPV 8.6 fl (7.5-11.1) 03/29/17 07:30 CMP Sodium 138 mmol/L (136-145) 03/29/17 07:30 Potassium 3.9 mmol/L (3.5-5.1) 03/29/17 07:30 Chloride 106 mmol/L (98-107) 03/29/17 07:30 Carbon Dioxide 23 mmol/L (21-32) D 03/29/17 07:30 Anion Gap 9 (8-16) 03/29/17 07:30 BUN 7 mg/dL (7-18) D 03/29/17 07:30 Creatinine 0.9 mg/dL (0.55-1.02) 03/29/17 07:30 Creat Clearance w eGFR > 60 (>60) 03/29/17 07:30 Random Glucose 92 mg/dL (74-106) 03/29/17 07:30 Calcium 9.3 mg/dL (8.5-10.1) 03/29/17 07:30 Total Bilirubin 0.8 mg/dL (0.2-1.0) D 03/29/17 07:30 AST 16 U/L (15-37) 03/29/17 07:30 ALT 24 U/L (12-78) 03/29/17 07:30 Alkaline Phosphatase 67 U/L (45-117) 03/29/17 07:30 Total Protein 7.5 g/dl (6.4-8.2) 03/29/17 07:30 Albumin 4.3 g/dl (3.4-5.0) 03/29/17 07:30 CARDIAC ENZYMES Creatine Kinase 2451 IU/L (26-192) H 03/29/17 19:45 Troponin I 0.02 ng/ml (0.00-0.05) 03/29/17 19:45 CTAP: negative CT: negative CXR: no infiltrate or pneumothorax A/ 26 y/o woman with severe agitated delerium in setting of detox/withdrawal from polypharm/ETOH abuse intubated for airway protection P/ -Vent support, wean to extubation -cont propofol overnight -will add antipsychotics standing with plan on symptom triggered/CIWA for etoh withdraawl once extubated -cont methadone at daily dose -daily EKG for QTC -Psych and Detox following -GI prophy while intubated -DVT prophy Oscar Lopez ACNP [phone]
[2017-03-29] MEDS: MUPIROCIN 2% TOPICAL OINTMENT FOR DECOLONIZATION NS SCH (21:36)
[2017-03-29] MEDS: HEPARIN NA (PORCINE) 5,000 UNITS/ML 1ML VIAL SQ SCH (21:37)
[2017-03-29] MEDS: CHLORHEXIDINE GLUCONATE 4% CLEANSER FOR DECOLONIZATION TP SCH (21:37)
[2017-03-29] MEDS: QUEtiapine FUMARATE 25 MG TABLET (FP) NGT SCH (22:56)
[2017-03-30] MEDS: PROPOFOL 1,000,000 MCG/100 ML VIAL IVPUSH SCH ×2 (02:00→14:00)
[2017-03-30] MEDS: DEXTROSE 5%-NORMAL SALINE 1,000 ML IV SCH ×4 (05:09→17:33)
[2017-03-30] MEDS: HEPARIN NA (PORCINE) 5,000 UNITS/ML 1ML VIAL SQ SCH ×3 (05:09→22:16)
[2017-03-30] MEDS ORDERED: METHADONE HCL 10 MG TABLET GT SCH (06:00)
[2017-03-30 06:55] LABS: BASO % 0.5 % (0-2.0); EOS % 1.1 % (0-4.5); HEMATOCRIT 33.3 % (32.4-45.2); HEMOGLOBIN 11.1 GM/dL (10.7-15.3); LYMPH % 37.5 % (8-40); MCH 29.8 pg (25.7-33.7); MCHC 33.3 g/dl (32.0-36.0); MEAN CELL VOLUME 89.5 fl (80-96); MEAN PLT VOLUME 8.6 fl (7.5-11.1); MONO % 8.4 % (3.8-10.2); NEUT % 52.5 % (42.8-82.8); PLATELET COUNT 192 K/MM3 (134-434); RBC 3.72 M/mm3 (3.60-5.2); RDW 14.5 % (11.6-15.6); WHITE BLOOD COUNT 6.6 K/mm3 (4.0-10.0)
[2017-03-30 07:18] LABS: ALBUMIN 3.1 g/dl (3.4-5.0); ANION GAP 8 (8-16); BLOOD UREA NITROGEN 5 mg/dL (7-18); CALCIUM 8.5 mg/dL (8.5-10.1); CHLORIDE 113 mmol/L (98-107); CO2 25 mmol/L (21-32); GLUCOSE,RANDOM 93 mg/dL (74-106); INR 1.15 (0.82-1.09); MAGNESIUM 1.8 mg/dL (1.8-2.4); POTASSIUM 3.5 mmol/L (3.5-5.1); SODIUM 146 mmol/L (136-145)
[2017-03-30 07:21] LABS: ACTIVATED PTT 27.8 SECONDS (26.9-34.4)
[2017-03-30 07:23] LABS: ALK PHOS 46 U/L (45-117); BILIRUBIN,TOTAL 0.3 mg/dL (0.2-1.0); CREATININE 0.7 mg/dL (0.55-1.02); PHOSPHOROUS 4.4 mg/dL (2.5-4.9); SGOT/AST 41 U/L (15-37); SGPT/ALT 22 U/L (12-78); TOT PROT 5.3 g/dl (6.4-8.2)
--- NOTE | 2017-03-30 09:25 | PN ---
Physical Exam: SUBJECTIVE: Patient seen and examined at bedside. Extubated. Sitting up in bed. Tearful that she almost . Wants to see mother and sister. OBJECTIVE: Vital Signs Period Temp Pulse Resp BP Sys/Sharma Pulse Ox Last 24 Hr 97.8 F-99.7 F 68-120 14-24 106-156/63-99 50-100 GENERAL: The patient is awake, alert, and fully oriented. Tearful, depressed affect. LUNGS: Breath sounds equal, clear to auscultation bilaterally, no wheezes, no crackles, no accessory muscle use. HEART: Regular rate and rhythm, S1, S2 without murmur, rub or gallop. ABDOMEN: Soft, nontender, nondistended, normoactive bowel sounds, no guarding, no rebound EXTREMITIES: 2+ pulses, warm, well-perfused, no edema. NEUROLOGICAL: Cranial nerves II through XII grossly intact. Normal speech, gait not observed. Laboratory Results - last 24 hr 03/29/17 03/29/17 03/29/17 07:30 07:30 07:30 WBC RBC Hgb Hct MCV MCH MCHC RDW Plt Count MPV Neutrophils % Lymphocytes % Monocytes % Eosinophils % Basophils % PT with INR INR PTT (Actin FS) Puncture Site ABG pH ABG pCO2 at Pt Temp ABG pO2 at Pt Temp ABG HCO3 ABG O2 Sat (Measured) ABG O2 Content ABG Base Excess Gigi Test Carboxyhemoglobin Methemoglobin O2 Delivery Device Oxygen Flow Rate Vent Rate Mechanical Rate PEEP Pressure Support Vent Sodium 138 Potassium 3.9 Chloride 106 Carbon Dioxide 23 D Anion Gap 9 BUN 7 D Creatinine 0.9 Creat Clearance w eGFR > 60 Random Glucose 92 Lactic Acid Calcium 9.3 Phosphorus Magnesium Total Bilirubin 0.8 D AST 16 ALT 24 Alkaline Phosphatase 67 Creatine Kinase 404 H Creatine Kinase Index 0.4 CK-MB (CK-2) 1.88 Troponin I < 0.02 Total Protein 7.5 Albumin 4.3 Lipase Serum , Qual Negative Urine Color Urine Appearance Urine pH Ur Specific [place] Urine Protein Urine Glucose (UA) Urine Ketones Urine Blood Urine Nitrite Urine Bilirubin Urine Urobilinogen Ur Leukocyte Esterase Urine WBC (Auto) Urine RBC (Auto) Urine Mucus Urine HCG, Qual Salicylates < 4.0 Opiates Screen Methadone Screen Acetaminophen < 2.000 L Barbiturate Screen Phencyclidine Screen Ur Amphetamines Screen MDMA (Ecstasy) Screen Benzodiazepines Screen Cocaine Screen U Marijuana (THC) Screen 03/29/17 03/29/17 03/29/17 08:32 13:21 14:30 WBC RBC Hgb Hct MCV MCH MCHC RDW Plt Count MPV Neutrophils % Lymphocytes % Monocytes % Eosinophils % Basophils % PT with INR INR PTT (Actin FS) Puncture Site Left radial ABG pH 7.39 ABG pCO2 at Pt Temp 38.2 ABG pO2 at Pt Temp 234.0 H* ABG HCO3 22.4 ABG O2 Sat (Measured) 99.5 H ABG O2 Content 18.6 ABG Base Excess -1.8 Gigi Test Positive Carboxyhemoglobin 0.7 Methemoglobin 0.7 O2 Delivery Device Mech vent Oxygen Flow Rate 50 Vent Rate 14 Mechanical Rate Yes PEEP 0.0 Pressure Support Vent 400 Sodium Potassium Chloride Carbon Dioxide Anion Gap BUN Creatinine Creat Clearance w eGFR Random Glucose Lactic Acid 1.0 Calcium Phosphorus Magnesium Total Bilirubin AST ALT Alkaline Phosphatase Creatine Kinase Cancelled Creatine Kinase Index CK-MB (CK-2) Troponin I Cancelled Total Protein Albumin Lipase Serum , Qual Urine Color Urine Appearance Urine pH Ur Specific [place] Urine Protein Urine Glucose (UA) Urine Ketones Urine Blood Urine Nitrite Urine Bilirubin Urine Urobilinogen Ur Leukocyte Esterase Urine WBC (Auto) Urine RBC (Auto) Urine Mucus Urine HCG, Qual Salicylates Opiates Screen Methadone Screen Acetaminophen Barbiturate Screen Phencyclidine Screen Ur Amphetamines Screen MDMA (Ecstasy) Screen Benzodiazepines Screen Cocaine Screen U Marijuana (THC) Screen 03/29/17 03/29/17 03/29/17 15:01 15:01 19:45 WBC RBC Hgb Hct MCV MCH MCHC RDW Plt Count MPV Neutrophils % Lymphocytes % Monocytes % Eosinophils % Basophils % PT with INR INR PTT (Actin FS) Puncture Site ABG pH ABG pCO2 at Pt Temp ABG pO2 at Pt Temp ABG HCO3 ABG O2 Sat (Measured) ABG O2 Content ABG Base Excess Gigi Test Carboxyhemoglobin Methemoglobin O2 Delivery Device Oxygen Flow Rate Vent Rate Mechanical Rate PEEP Pressure Support Vent Sodium Potassium Chloride Carbon Dioxide Anion Gap BUN Creatinine Creat Clearance w eGFR Random Glucose Lactic Acid Calcium Phosphorus Magnesium Total Bilirubin AST ALT Alkaline Phosphatase Creatine Kinase 2451 H Creatine Kinase Index 0.4 CK-MB (CK-2) 11.018 H Troponin I 0.02 Total Protein Albumin Lipase Serum , Qual Urine Color Ltyellow Urine Appearance Clear Urine pH 7.0 Ur Specific [place] 1.011 Urine Protein Negative Urine Glucose (UA) Negative Urine Ketones Negative Urine Blood Negative Urine Nitrite Negative Urine Bilirubin Negative Urine Urobilinogen Negative Ur Leukocyte Esterase Trace Urine WBC (Auto) <1 Urine RBC (Auto) 23 Urine Mucus Rare Urine HCG, Qual Negative Salicylates Opiates Screen Positive Methadone Screen Positive Acetaminophen Barbiturate Screen Negative Phencyclidine Screen Negative Ur Amphetamines Screen Negative MDMA (Ecstasy) Screen Negative Benzodiazepines Screen Positive Cocaine Screen Negative U Marijuana (THC) Screen Positive 03/29/17 03/29/17 03/30/17 19:45 19:45 05:10 WBC 6.6 RBC 3.72 D Hgb 11.1 D Hct 33.3 D MCV 89.5 MCH 29.8 MCHC 33.3 RDW 14.5 Plt Count 192 MPV 8.6 Neutrophils % 52.5 Lymphocytes % 37.5 Monocytes % 8.4 Eosinophils % 1.1 Basophils % 0.5 PT with INR INR PTT (Actin FS) Puncture Site ABG pH ABG pCO2 at Pt Temp ABG pO2 at Pt Temp ABG HCO3 ABG O2 Sat (Measured) ABG O2 Content ABG Base Excess Gigi Test Carboxyhemoglobin Methemoglobin O2 Delivery Device Oxygen Flow Rate Vent Rate Mechanical Rate PEEP Pressure Support Vent Sodium Potassium Chloride Carbon Dioxide Anion Gap BUN Creatinine Creat Clearance w eGFR Random Glucose Lactic Acid 0.8 Calcium Phosphorus Magnesium Total Bilirubin AST ALT Alkaline Phosphatase Creatine Kinase Creatine Kinase Index CK-MB (CK-2) Troponin I Total Protein Albumin Lipase 102 Serum , Qual Urine Color Urine Appearance Urine pH Ur Specific [place] Urine Protein Urine Glucose (UA) Urine Ketones Urine Blood Urine Nitrite Urine Bilirubin Urine Urobilinogen Ur Leukocyte Esterase Urine WBC (Auto) Urine RBC (Auto) Urine Mucus Urine HCG, Qual Salicylates Opiates Screen Methadone Screen Acetaminophen Barbiturate Screen Phencyclidine Screen Ur Amphetamines Screen MDMA (Ecstasy) Screen Benzodiazepines Screen Cocaine Screen U Marijuana (THC) Screen 03/30/17 03/30/17 05:10 05:10 WBC RBC Hgb Hct MCV MCH MCHC RDW Plt Count MPV Neutrophils % Lymphocytes % Monocytes % Eosinophils % Basophils % PT with INR 13.00 H INR 1.15 H PTT (Actin FS) 27.8 Puncture Site ABG pH ABG pCO2 at Pt Temp ABG pO2 at Pt Temp ABG HCO3 ABG O2 Sat (Measured) ABG O2 Content ABG Base Excess Gigi Test Carboxyhemoglobin Methemoglobin O2 Delivery Device Oxygen Flow Rate Vent Rate Mechanical Rate PEEP Pressure Support Vent Sodium 146 H Potassium 3.5 Chloride 113 H Carbon Dioxide 25 Anion Gap 8 BUN 5 L D Creatinine 0.7 D Creat Clearance w eGFR > 60 Random Glucose 93 Lactic Acid Calcium 8.5 Phosphorus 4.4 Magnesium 1.8 Total Bilirubin 0.3 D AST 41 H D ALT 22 Alkaline Phosphatase 46 D Creatine Kinase Creatine Kinase Index CK-MB (CK-2) Troponin I Total Protein 5.3 L D Albumin 3.1 L D Lipase Serum , Qual Urine Color Urine Appearance Urine pH Ur Specific [place] Urine Protein Urine Glucose (UA) Urine Ketones Urine Blood Urine Nitrite Urine Bilirubin Urine Urobilinogen Ur Leukocyte Esterase Urine WBC (Auto) Urine RBC (Auto) Urine Mucus Urine HCG, Qual Salicylates Opiates Screen Methadone Screen Acetaminophen Barbiturate Screen Phencyclidine Screen Ur Amphetamines Screen MDMA (Ecstasy) Screen Benzodiazepines Screen Cocaine Screen U Marijuana (THC) Screen Active Medications Generic Name Dose Route Start Last Admin Trade Name Jayna PRN Reason Stop Dose Admin Chlorhexidine Gluconate 1 applic 03/29/17 22:00 03/29/17 21:37 Hibiclens For Decolonization - TP 1 applic HS ANGELINA Administration Heparin Sodium (Porcine) 5,000 unit 03/29/17 22:00 03/30/17 05:09 Heparin - SQ 5,000 unit TID ANGELINA Administration Propofol 1,000,000 mcg in 100 mls @ 1.769 mls/hr 03/29/17 14:00 03/30/17 02: 00 Diprivan - IVPUSH 40 mcg/kg/min TITR ANGELINA 14.152 mls/hr Protocol Administration 5 MCG/KG/MIN Dextrose/Sodium Chloride 1,000 mls @ 125 mls/hr 03/29/17 15:00 03/30/17 05:09 D5-Ns - IV 125 mls/hr ASDIR ANGELINA Administration Methadone HCl 20 mg 03/30/17 06:00 Dolophine - PO DAILY@0600 ANGELINA Mupirocin 1 applic 03/29/17 22:00 03/29/17 21:36 Bactroban Ointment (For Decolonization) - NS 04/03/17 21:59 1 applic BID ANGELINA Administration Quetiapine Fumarate 50 mg 03/29/17 22:00 03/29/17 22:56 Seroquel - NGT 50 mg BID ANGELINA Administration ASSESSMENT/PLAN 26 year-old female with a PMH significant for polysubstance abuse, admitted for severe agitation and delirium secondary to acute alcohol and opiate withdrawal. Acute alcohol and opiate withdrawal --patient acknowledged recent alcohol and heroin use when screened at [facility] on 03/28 --urine tox positive for opiates, methadone, benzos, and marijuana --extreme agitation observed in ED --intubated and sedated to protect airway --extubated this morning --continue methadone, seroquel --detox consult DVT prophylaxis: subq heparin Dispo: requires ICU level care. Full code. Visit type - Emergency Visit Emergency Visit: Yes ED Registration Date: 03/29/17 Care time: The patient presented to the Emergency Department on the above date and was hospitalized for further evaluation of their emergent condition. - New Patient This patient is new to me today: No - Critical Care Critical Care patient: Yes Total Critical Care Time (in minutes): 35 Critical Care Statement: The care of this patient involved high complexity decision making to prevent further life threatening deterioration of the patient 's condition and/or to evaluate & treat vital organ system(s) failure or risk of failure.
[2017-03-30] MEDS: QUEtiapine FUMARATE 25 MG TABLET (FP) NGT SCH (09:28)
[2017-03-30] MEDS: MUPIROCIN 2% TOPICAL OINTMENT FOR DECOLONIZATION NS SCH ×2 (09:53→22:18)
--- NOTE | 2017-03-30 11:54 | PN ---
Progress Note (short form) - Note Progress Note: PULM/CCM Progress note 24HR: remained sedated overnight ready for extubation this am improved agitation on seroquel Pt seen ane examined in ICU CC: agitated delerium HPI: 26F with history of alcohol and heroin abuse presented to ED from [facility] where she was undergoing detox (unclear how long she had been inhouse there) who is now intubated in ICU for inability to protect her airway. Recent Travel: Unknown PAST MEDICAL HISTORY Polysubstance abuse PAST SURGICAL HISTORY: None reported Social History (taken from chart) Smoking: current every day Alcohol: daily vodka (last drink 03/25/17) Drugs: heroin (inhalation 4 bags daily last use 03/27/17), marijuana Family History: Allergies No Known Allergies Allergy (Verified 03/29/17 09:00) HOME MEDICATIONS: Home Medications Medication Instructions Recorded Unobtainable [Unobtainable] 03/29/17 REVIEW OF SYSTEMS Unobtainable due to clinical status PE: Gen: awake, follows simple commands HEENT: [place], reactive, orally intubated PULM: clear, anterior CV: RRR, no m/r/g appreciated ABD; soft, +BS Ext: w/w/p, no edema Neuro: withdrawal to noxious stimuli EKG: Sinus, normal axis, normal interval, isolated ST depression. QTC 433 CBCD CBCD WBC 6.6 K/mm3 (4.0-10.0) 03/30/17 05:10 RBC 3.72 M/mm3 (3.60-5.2) D 03/30/17 05:10 Hgb 11.1 GM/dL (10.7-15.3) D 03/30/17 05:10 Hct 33.3 % (32.4-45.2) D 03/30/17 05:10 MCV 89.5 fl (80-96) 03/30/17 05:10 MCHC 33.3 g/dl (32.0-36.0) 03/30/17 05:10 RDW 14.5 % (11.6-15.6) 03/30/17 05:10 Plt Count 192 K/MM3 (134-434) 03/30/17 05:10 MPV 8.6 fl (7.5-11.1) 03/30/17 05:10 CMP Sodium 146 mmol/L (136-145) H 03/30/17 05:10 Potassium 3.5 mmol/L (3.5-5.1) 03/30/17 05:10 Chloride 113 mmol/L (98-107) H 03/30/17 05:10 Carbon Dioxide 25 mmol/L (21-32) 03/30/17 05:10 Anion Gap 8 (8-16) 03/30/17 05:10 BUN 5 mg/dL (7-18) L D 03/30/17 05:10 Creatinine 0.7 mg/dL (0.55-1.02) D 03/30/17 05:10 Creat Clearance w eGFR > 60 (>60) 03/30/17 05:10 Random Glucose 93 mg/dL (74-106) 03/30/17 05:10 Calcium 8.5 mg/dL (8.5-10.1) 03/30/17 05:10 Total Bilirubin 0.3 mg/dL (0.2-1.0) D 03/30/17 05:10 AST 41 U/L (15-37) H D 03/30/17 05:10 ALT 22 U/L (12-78) 03/30/17 05:10 Alkaline Phosphatase 46 U/L (45-117) D 03/30/17 05:10 Total Protein 5.3 g/dl (6.4-8.2) L D 03/30/17 05:10 Albumin 3.1 g/dl (3.4-5.0) L D 03/30/17 05:10 CARDIAC ENZYMES Creatine Kinase 2451 IU/L (26-192) H 03/29/17 19:45 Troponin I 0.02 ng/ml (0.00-0.05) 03/29/17 19:45 CT: negative CXR: no infiltrate or pneumothorax A/ 26 y/o woman with severe agitated delerium in setting of detox/withdrawal from polypharm/ETOH abuse intubated for airway protection P/ -extubate now -will add antipsychotics standing with plan on symptom triggered/CIWA for etoh withdraawl once extubated -cont methadone at daily dose?, confirm with detox -daily EKG for QTC -Psych and Detox following -DVT prophy -ok for floor post extubation Oscar Lopez ACNP [id number]
--- NOTE | 2017-03-30 13:22 | EKG ---
Test Reason : Blood Pressure : / mmHG Vent. Rate : 080 BPM Atrial Rate : 080 BPM P-R Int : 162 ms QRS Dur : 084 ms QT Int : 398 ms P-R-T Axes : 069 -30 028 degrees QTc Int : 459 ms NORMAL SINUS RHYTHM LEFT AXIS DEVIATION ABNORMAL ECG WHEN COMPARED WITH ECG OF 29-MAR-2017 14:48, NO SIGNIFICANT CHANGE WAS FOUND Confirmed by JADA HOLM MD ([id number]) on 03/30/2017 1:22:23 PM Referred By: Denise CHOI Confirmed By:JADA HOLM MD
--- NOTE | 2017-03-30 13:31 | EKG ---
Test Reason : Blood Pressure : / mmHG Vent. Rate : 104 BPM Atrial Rate : 104 BPM P-R Int : 156 ms QRS Dur : 090 ms QT Int : 350 ms P-R-T Axes : 070 -35 023 degrees QTc Int : 460 ms SINUS TACHYCARDIA LEFT AXIS DEVIATION ABNORMAL ECG WHEN COMPARED WITH ECG OF 29-MAR-2017 08:30, NONSPECIFIC T WAVE ABNORMALITY NOW EVIDENT IN INFERIOR LEADS T WAVE AMPLITUDE HAS DECREASED IN ANTERIOR LEADS Confirmed by JADA HOLM MD ([id number]) on 03/30/2017 1:30:49 PM Referred By: Confirmed By:JADA HOLM MD
--- NOTE | 2017-03-30 13:35 | EKG ---
Test Reason : Blood Pressure : / mmHG Vent. Rate : 101 BPM Atrial Rate : 101 BPM P-R Int : 142 ms QRS Dur : 078 ms QT Int : 334 ms P-R-T Axes : 074 -74 055 degrees QTc Int : 433 ms SINUS TACHYCARDIA BIATRIAL ENLARGEMENT PULMONARY DISEASE PATTERN LEFT ANTERIOR FASCICULAR BLOCK NONSPECIFIC T WAVE ABNORMALITY ABNORMAL ECG Confirmed by JADA HOLM MD ([id number]) on 03/30/2017 1:35:27 PM Referred By: Confirmed By:JADA HOLM MD
[2017-03-30] MEDS ORDERED: LORazepam 1 MG TABLET PO ONE (17:41)
[2017-03-30] MEDS ORDERED: chlordiazePOXIDE HCL 25 MG CAPSULE PO PRN (18:24)
[2017-03-30] MEDS ORDERED: chlordiazePOXIDE HCL 25 MG CAPSULE PO ONE (18:24)
[2017-03-30] MEDS ORDERED: METHADONE HCL 10 MG TABLET PO ONE ×2 (18:24→23:00)
[2017-03-30] MEDS ORDERED: ZOLPIDEM TARTRATE 5 MG TABLET PO PRN (18:28)
[2017-03-30] MEDS ORDERED: ONDANSETRON *ODT* 4 MG TABLET SL ONE (18:38)
[2017-03-30] MEDS ORDERED: NICOTINE POLACRILEX 2 MG GUM BUC PRN (18:40)
[2017-03-30] MEDS: PANTOPRAZOLE 40 MG TABLET (FP) PO SCH (19:17)
[2017-03-30] MEDS: ACETAMINOPHEN 325 MG TABLET (FP) PO PRN (19:17)
[2017-03-30] MEDS: NICOTINE 14 MG/24 HOURS TOPICAL PATCH TD SCH (20:33)
[2017-03-30] MEDS ORDERED: CYCLOBENZAPRINE HCL 5 MG TABLET PO SCH (22:00)
[2017-03-30] MEDS: chlordiazePOXIDE HCL 25 MG CAPSULE PO SCH (22:16)
[2017-03-30] MEDS: cloNIDine HCL 0.1 MG TABLET PO SCH (22:16)
[2017-03-30] MEDS: CHLORHEXIDINE GLUCONATE 4% CLEANSER FOR DECOLONIZATION TP SCH (22:17)
[2017-03-30] MEDS: QUEtiapine FUMARATE 100 MG TABLET (FP) PO SCH (22:17)
[2017-03-30] MEDS: THIAMINE HCL 100 MG TABLET (FP) PO SCH (22:17)
[2017-03-31] MEDS ORDERED: ONDANSETRON *ODT* 4 MG TABLET SL PRN (01:00)
[2017-03-31] MEDS: chlordiazePOXIDE HCL 25 MG CAPSULE PO SCH ×3 (05:39→17:55)
[2017-03-31] MEDS: CYCLOBENZAPRINE HCL 10 MG TABLET (FP) PO SCH ×3 (05:39→21:31)
[2017-03-31] MEDS: HEPARIN NA (PORCINE) 5,000 UNITS/ML 1ML VIAL SQ SCH ×3 (05:40→21:33)
[2017-03-31] MEDS: MUPIROCIN 2% TOPICAL OINTMENT FOR DECOLONIZATION NS SCH (09:31)
[2017-03-31] MEDS ORDERED: PT OWN MED DRAWER 7, Y5N ONE (09:39)
[2017-03-31] MEDS: NICOTINE 14 MG/24 HOURS TOPICAL PATCH TD SCH (09:42)
[2017-03-31] MEDS: PANTOPRAZOLE 40 MG TABLET (FP) PO SCH (09:42)
[2017-03-31] MEDS: cloNIDine HCL 0.1 MG TABLET PO SCH ×2 (09:42→21:34)
[2017-03-31] MEDS ORDERED: METHADONE HCL 10 MG TABLET PO SCH (10:00)
[2017-03-31] MEDS ORDERED: PNEUMOC 13-VAL CONJ-DIP CRM/PF 0.5 ML DISP.SYRIN IM ONE (10:00)
[2017-03-31] MEDS ORDERED: FLU VACCINE QUAD 60 MCG/0.5 ML (MDV 17-18) IM ONE (10:00)
[2017-03-31] MEDS ORDERED: PRENATAL VITAMINS W/ FOLIC ACID TABLET (FP) PO SCH (10:00)
[2017-03-31 10:29] LABS: BASO % 0.4 % (0-2.0); EOS % 0.9 % (0-4.5); HEMATOCRIT 34.3 % (32.4-45.2); HEMOGLOBIN 11.3 GM/dL (10.7-15.3); LYMPH % 20.2 % (8-40); MCH 29.3 pg (25.7-33.7); MCHC 32.9 g/dl (32.0-36.0); MEAN CELL VOLUME 89.1 fl (80-96); MONO % 5.8 % (3.8-10.2); NEUT % 72.7 % (42.8-82.8); PLATELET COUNT 162 K/MM3 (134-434); RBC 3.85 M/mm3 (3.60-5.2); RDW 14.4 % (11.6-15.6); WHITE BLOOD COUNT 10.4 K/mm3 (4.0-10.0)
[2017-03-31] MEDS: FOLIC ACID 1 MG TABLET (FP) PO SCH (11:24)
[2017-03-31] MEDS: MULTIVITAMINS (DAILY MVI) TABLET (FP) PO SCH (11:24)
[2017-03-31 11:30] LABS: ALBUMIN 3.1 g/dl (3.4-5.0); ANION GAP 5 (8-16); BILIRUBIN,TOTAL 0.7 mg/dL (0.2-1.0); BLOOD UREA NITROGEN 5 mg/dL (7-18); CALCIUM 8.1 mg/dL (8.5-10.1); CHLORIDE 109 mmol/L (98-107); CO2 27 mmol/L (21-32); CREATININE 0.9 mg/dL (0.55-1.02); GLUCOSE,RANDOM 86 mg/dL (74-106); MAGNESIUM 1.7 mg/dL (1.8-2.4); POTASSIUM 3.8 mmol/L (3.5-5.1); SGOT/AST 34 U/L (15-37); SGPT/ALT 28 U/L (12-78); SODIUM 141 mmol/L (136-145); TOT PROT 5.6 g/dl (6.4-8.2)
[2017-03-31 11:42] LABS: ALK PHOS 56 U/L (45-117)
[2017-03-31] MEDS: ACETAMINOPHEN 325 MG TABLET (FP) PO PRN (17:56)
[2017-03-31] MEDS ORDERED: LORazepam 2 MG/ML SDV VIAL ONE (18:33)
[2017-03-31] MEDS ORDERED: LORazepam 2 MG/ML SDV VIAL IVPUSH PRN (18:52)
--- NOTE | 2017-03-31 20:16 | PN ---
Physical Exam: SUBJECTIVE: Patient seen and examined at bedside. Sleeping but arousable. After a few minutes became much more alert and talkative. Later in the day seen walking in the hallway, talking on the unit telephone. Has periods of irritability. OBJECTIVE: Vital Signs Period Temp Pulse Resp BP Sys/Sharma Pulse Ox Last 24 Hr 98.6 F-99.9 F 69-80 17-28 99-131/54-89 98-100 GENERAL/NEURO: A&Ox3; Cranial nerves II through XII grossly intact. Normal speech, steady gait. HEAD: Normal with no signs of trauma. LUNGS: Breath sounds equal, clear to auscultation bilaterally, no wheezes, no crackles, no accessory muscle use. HEART: Regular rate and rhythm, S1, S2 without murmur, rub or gallop. ABDOMEN: Soft, nontender, nondistended, normoactive bowel sounds, no guarding, no rebound EXTREMITIES: 2+ pulses, warm, well-perfused, no edema. PSYCH: Rapid mood swings, chatty to irritable to demanding. SKIN: Warm, dry, normal turgor Laboratory Results - last 24 hr 03/31/17 03/31/17 10:10 10:10 WBC 10.4 H D RBC 3.85 Hgb 11.3 Hct 34.3 MCV 89.1 MCH 29.3 MCHC 32.9 RDW 14.4 Plt Count 162 MPV 8.0 Neutrophils % 72.7 D Lymphocytes % 20.2 D Monocytes % 5.8 Eosinophils % 0.9 Basophils % 0.4 Sodium 141 Potassium 3.8 Chloride 109 H Carbon Dioxide 27 Anion Gap 5 L BUN 5 L Creatinine 0.9 D Creat Clearance w eGFR > 60 Random Glucose 86 Calcium 8.1 L Magnesium 1.7 L Total Bilirubin 0.7 D AST 34 ALT 28 D Alkaline Phosphatase 56 D Creatine Kinase 1463 H Creatine Kinase Index 0.1 CK-MB (CK-2) 2.740 Total Protein 5.6 L Albumin 3.1 L Active Medications Generic Name Dose Route Start Last Admin Trade Name Freq PRN Reason Stop Dose Admin Acetaminophen 650 mg 03/30/17 19:10 03/31/17 17:56 Tylenol - PO 650 mg Q6H PRN Administration FEVER OR PAIN Chlordiazepoxide HCl 25 mg 03/31/17 23:00 Librium - PO 04/01/17 17:01 [id number] ANGELINA Chlordiazepoxide HCl 15 mg 04/01/17 23:00 Librium - PO 04/02/17 17:01 [id number] ANGELINA Chlordiazepoxide HCl 25 mg 03/30/17 18:24 Librium - PO 04/02/17 18:25 Q4H PRN WITHDRAWAL(CONT SUBST) Chlorhexidine Gluconate 1 applic 03/29/17 22:00 03/30/17 22:17 Hibiclens For Decolonization - TP 1 applic HS ANGELINA Administration Clonidine 0.1 mg 03/30/17 22:00 03/31/17 09:42 Catapres - PO 0.1 mg BID ANGELINA Administration Cyclobenzaprine HCl 5 mg 03/31/17 06:00 03/31/17 13:52 Flexeril - PO Not Given TID ANGELINA Folic Acid 1 mg 03/31/17 10:00 03/31/17 11:24 Folic Acid - PO 1 mg DAILY ANGELINA Administration Heparin Sodium (Porcine) 5,000 unit 03/29/17 22:00 03/31/17 13:51 Heparin - SQ 5,000 unit TID ANGELINA Administration Dextrose/Sodium Chloride 1,000 mls @ 125 mls/hr 03/29/17 15:00 03/30/17 17:33 D5-Ns - IV 125 mls/hr ASDIR ANGELINA Administration Lorazepam 1 mg 03/31/17 18:52 Ativan Injection - IVPUSH Q4H PRN ANXIETY Methadone HCl 15 mg 04/01/17 10:00 Dolophine - PO 04/02/17 10:01 DAILY [facility] Methadone HCl 5 mg 04/04/17 06:00 Dolophine - PO 04/04/17 06:01 DAILY@0600 ANGELINA Methadone HCl 10 mg 04/03/17 10:00 Dolophine - PO 04/03/17 10:01 DAILY [facility] Multivitamins/Minerals/Vitamin C 1 tab 03/31/17 10:00 03/31/17 11:24 Tab-A-Vit - PO 1 tab DAILY [facility] Administration Mupirocin 1 applic 03/29/17 22:00 03/31/17 09:31 Bactroban Ointment (For Decolonization) - NS 04/03/17 21:59 Not Given BID [facility] Nicotine 14 mg 03/30/17 18:45 03/31/17 09:42 Nicoderm Patch - TD 14 mg DAILY ANGELINA Administration Nicotine Polacrilex 2 mg 03/30/17 18:40 Nicorette Gum - BUC Q2H PRN NICOTINE REPLACEMENT RX Ondansetron HCl 8 mg 03/31/17 01:00 Zofran Odt - SL Q6H PRN NAUSEA AND/OR VOMITING Pantoprazole Sodium 40 mg 03/30/17 19:15 03/31/17 09:42 Protonix - PO 40 mg DAILY ANGELINA Administration Quetiapine Fumarate 100 mg 03/30/17 22:00 03/30/17 22:17 Seroquel - PO 100 mg HS ANGELINA Administration Thiamine HCl 100 mg 03/30/17 22:00 03/30/17 22:17 Vitamin B1 - PO 100 mg HS ANGELINA Administration Zolpidem Tartrate 10 mg 03/30/17 18:28 03/30/17 22:17 Ambien - PO 10 mg HS PRN Administration INSOMNIA ASSESSMENT/PLAN 26 year-old female with a PMH significant for polysubstance abuse, admitted for severe agitation and delirium secondary to acute alcohol and opiate withdrawal. Acute alcohol and opiate withdrawal --patient acknowledged recent alcohol and heroin use when screened at [facility] on 03/28 --urine tox positive for opiates, methadone, benzos, and marijuana --extreme agitation observed in ED-->intubated 03/29-->extubated 03/30 --continue medication regimen prescribed by Dr. Dee; patient does not appear oversedated DVT prophylaxis: subq heparin Dispo: continues to require inpatient care. Full code. Patient states when she leaves the hospital, she would like to go to a particular [facility] on [address] [place] [address] in the [place] where she hopes to get a room and be reunited with her 4 children. Visit type - Emergency Visit Emergency Visit: Yes ED Registration Date: 03/29/17 Care time: The patient presented to the Emergency Department on the above date and was hospitalized for further evaluation of their emergent condition. - New Patient This patient is new to me today: No - Critical Care Critical Care patient: No
[2017-03-31] MEDS ORDERED: QUEtiapine FUMARATE 50 MG TABLET ONE (21:18)
[2017-03-31] MEDS: THIAMINE HCL 100 MG TABLET (FP) PO SCH (21:31)
[2017-03-31] MEDS: QUEtiapine FUMARATE 100 MG TABLET (FP) PO SCH (21:32)
[2017-03-31] MEDS ORDERED: chlordiazePOXIDE HCL 25 MG CAPSULE PO SCH (23:00)
[2017-04-01 07:20] LABS: BASO % 0.2 % (0-2.0); EOS % 1.3 % (0-4.5); HEMATOCRIT 33.9 % (32.4-45.2); MCH 29.1 pg (25.7-33.7); MCHC 32.5 g/dl (32.0-36.0); MEAN CELL VOLUME 89.3 fl (80-96); MEAN PLT VOLUME 8.4 fl (7.5-11.1); MONO % 6.3 % (3.8-10.2); NEUT % 76.2 % (42.8-82.8); PLATELET COUNT 160 K/MM3 (134-434); RDW 14.5 % (11.6-15.6); WHITE BLOOD COUNT 9.5 K/mm3 (4.0-10.0)
[2017-04-01 08:03] LABS: ANION GAP 8 (8-16); BLOOD UREA NITROGEN 7 mg/dL (7-18); CALCIUM 8.6 mg/dL (8.5-10.1); CHLORIDE 108 mmol/L (98-107); CO2 25 mmol/L (21-32); GLUCOSE,RANDOM 87 mg/dL (74-106); MAGNESIUM 1.8 mg/dL (1.8-2.4); POTASSIUM 3.7 mmol/L (3.5-5.1); SODIUM 141 mmol/L (136-145)
[2017-04-01 08:08] LABS: ALK PHOS 57 U/L (45-117); BILIRUBIN,TOTAL 0.5 mg/dL (0.2-1.0); CREATININE 0.8 mg/dL (0.55-1.02); SGOT/AST 24 U/L (15-37); SGPT/ALT 25 U/L (12-78); TOT PROT 5.5 g/dl (6.4-8.2)
[2017-04-01] MEDS ORDERED: chlordiazePOXIDE HCL 25 MG CAPSULE PO SCH (09:00)
[2017-04-01] MEDS ORDERED: METHADONE HCL 5 MG TABLET PO SCH (10:00)
[2017-04-01] MEDS: chlordiazePOXIDE HCL 25 MG CAPSULE PO SCH ×2 (10:15→14:18)
[2017-04-01] MEDS: MULTIVITAMINS (DAILY MVI) TABLET (FP) PO SCH (10:16)
[2017-04-01] MEDS: cloNIDine HCL 0.1 MG TABLET PO SCH (10:16)
[2017-04-01] MEDS: PANTOPRAZOLE 40 MG TABLET (FP) PO SCH (10:16)
[2017-04-01] MEDS: FOLIC ACID 1 MG TABLET (FP) PO SCH (10:16)
[2017-04-01 13:55] VITALS: TEMP 98.4
[2017-04-01 14:15] VITALS: BP 115/67; PULSE 62
[2017-04-01] MEDS: CYCLOBENZAPRINE HCL 10 MG TABLET (FP) PO SCH (14:17)
[2017-04-01] MEDS: HEPARIN NA (PORCINE) 5,000 UNITS/ML 1ML VIAL SQ SCH (14:18)
--- NOTE | 2017-04-01 15:45 | PN ---
Progress Note (short form) - Note Progress Note: Subjective: The patient was seen and examined at the bedside, she was sleeping with a partner at the bedside. Both were difficult to arouse to loud voice only. Once aroused the patient was slow to respond F/u utox Current Medications Generic Name Dose Route Start Last Admin Trade Name Freq PRN Reason Stop Dose Admin Acetaminophen 650 mg 03/30/17 19:10 03/31/17 17:56 Tylenol - PO 650 mg Q6H PRN Administration FEVER OR PAIN Chlordiazepoxide HCl 25 mg 03/30/17 18:24 Librium - PO 04/02/17 18:25 Q4H PRN WITHDRAWAL(CONT SUBST) Chlordiazepoxide HCl 25 mg 04/01/17 09:00 04/01/17 14:18 Librium - PO 04/02/17 03:01 25 mg Q6H ANGELINA Administration Chlordiazepoxide HCl 15 mg 04/02/17 09:00 Librium - PO 04/03/17 03:01 Q6H ANGELINA Chlordiazepoxide HCl 10 mg 04/03/17 09:00 Librium - PO 04/04/17 03:01 Q6H ANGELINA Clonidine 0.1 mg 03/30/17 22:00 04/01/17 10:16 Catapres - PO 0.1 mg BID ANGELINA Administration Cyclobenzaprine HCl 5 mg 03/31/17 06:00 04/01/17 14:17 Flexeril - PO 5 mg TID ANGELINA Administration Folic Acid 1 mg 03/31/17 10:00 04/01/17 10:16 Folic Acid - PO 1 mg DAILY ANGELINA Administration Heparin Sodium (Porcine) 5,000 unit 03/29/17 22:00 04/01/17 14:18 Heparin - SQ 5,000 unit TID ANGELINA Administration Dextrose/Sodium Chloride 1,000 mls @ 125 mls/hr 03/29/17 15:00 03/30/17 17:33 D5-Ns - IV 125 mls/hr ASDIR ANGELINA Administration Lorazepam 1 mg 03/31/17 18:52 Ativan Injection - IVPUSH Q4H PRN ANXIETY Methadone HCl 15 mg 04/01/17 10:00 04/01/17 10:16 Dolophine - PO 04/02/17 10:01 15 mg DAILY ANGELINA Administration Methadone HCl 5 mg 01/11/18 06:00 Dolophine - PO 01/11/18 06:01 DAILY@0600 ANGELINA Methadone HCl 10 mg 04/03/17 10:00 Dolophine - PO 04/03/17 10:01 DAILY ANGELINA Multivitamins/Minerals/Vitamin C 1 tab 03/31/17 10:00 04/01/17 10:16 Tab-A-Vit - PO 1 tab DAILY ANGELINA Administration Nicotine Polacrilex 2 mg 03/30/17 18:40 Nicorette Gum - BUC Q2H PRN NICOTINE REPLACEMENT RX Ondansetron HCl 8 mg 03/31/17 01:00 Zofran Odt - SL Q6H PRN NAUSEA AND/OR VOMITING Pantoprazole Sodium 40 mg 03/30/17 19:15 04/01/17 10:16 Protonix - PO 40 mg DAILY ANGELINA Administration Quetiapine Fumarate 100 mg 03/30/17 22:00 03/31/17 21:32 Seroquel - PO 100 mg HS ANGELINA Administration Thiamine HCl 100 mg 03/30/17 22:00 03/31/17 21:31 Vitamin B1 - PO 100 mg HS ANGELINA Administration Zolpidem Tartrate 10 mg 03/30/17 18:28 03/30/17 22:17 Ambien - PO 10 mg HS PRN Administration INSOMNIA Objective: Vital Signs Period Temp Pulse Resp BP Sys/Sharma Pulse Ox Last 24 Hr 98.4 F-98.8 F 58-79 18-22 99-120/63-75 100-100 Physical Exam: General: NAD, lethargic but arousable Patient refused remainder of exam CBCD WBC 9.5 K/mm3 (4.0-10.0) 04/01/17 07:00 RBC 3.80 M/mm3 (3.60-5.2) 04/01/17 07:00 Hgb 11.0 GM/dL (10.7-15.3) 04/01/17 07:00 Hct 33.9 % (32.4-45.2) 04/01/17 07:00 MCV 89.3 fl (80-96) 04/01/17 07:00 MCHC 32.5 g/dl (32.0-36.0) 04/01/17 07:00 RDW 14.5 % (11.6-15.6) 04/01/17 07:00 Plt Count 160 K/MM3 (134-434) 04/01/17 07:00 MPV 8.4 fl (7.5-11.1) 04/01/17 07:00 CMP Sodium 141 mmol/L (136-145) 04/01/17 07:00 Potassium 3.7 mmol/L (3.5-5.1) 04/01/17 07:00 Chloride 108 mmol/L (98-107) H 04/01/17 07:00 Carbon Dioxide 25 mmol/L (21-32) 04/01/17 07:00 Anion Gap 8 (8-16) 04/01/17 07:00 BUN 7 mg/dL (7-18) D 04/01/17 07:00 Creatinine 0.8 mg/dL (0.55-1.02) 04/01/17 07:00 Creat Clearance w eGFR > 60 (>60) 04/01/17 07:00 Random Glucose 87 mg/dL (74-106) 04/01/17 07:00 Calcium 8.6 mg/dL (8.5-10.1) 04/01/17 07:00 Total Bilirubin 0.5 mg/dL (0.2-1.0) D 04/01/17 07:00 AST 24 U/L (15-37) D 04/01/17 07:00 ALT 25 U/L (12-78) 04/01/17 07:00 Alkaline Phosphatase 57 U/L (45-117) 04/01/17 07:00 Total Protein 5.5 g/dl (6.4-8.2) L 04/01/17 07:00 Albumin 3.0 g/dl (3.4-5.0) L 04/01/17 07:00 CARDIAC ENZYMES Creatine Kinase 1463 IU/L (26-192) H 03/31/17 10:10 Troponin I 0.02 ng/ml (0.00-0.05) 03/29/17 19:45 Microbiology 03/29/17 15:08 Urine - Urine Loo Urine Culture - Final NO GROWTH OBTAINED Assessment: This is a 26 year old female with PMHx of polysubstance abuse who presented to the ED with severe agitation and delirium 2/2 acute alcohol and opiate withdrawal Plan: 1) Acute alcohol and opiate withdrawal - Intubated on 03/29 for airway protection and extubated on 03/30 - Continue Librium taper - Continue Methadone taper - Utox positive for opiates, methadone, benzos, marijuana. Patient lethargic today with partner at the bedside, was difficult to arouse. F/u repeat utox - Continue Ativan prn - Continue Folic acid, thiamine, multivitamin - Continue seroquel - Appreciate detox consult 2) F/E/N: - Monitor electrolytes - High fiber diet 3) Prophylaxis: - Heparin 5,000u sq tid 4) Dispo: - Requires continued inpatient care - Patient reports she "feels good" and would like to leave AMA. Discussed the risks of leaving against medical advice, patient verbalizes an understanding of the risks. She states she would like to "think about it" CODE STATUS: FULL CODE Visit type - Emergency Visit Emergency Visit: Yes ED Registration Date: 03/29/17 Care time: The patient presented to the Emergency Department on the above date and was hospitalized for further evaluation of their emergent condition. - New Patient This patient is new to me today: Yes Date on this admission: 04/01/17 - Critical Care Critical Care patient: No
--- NOTE | 2017-04-01 17:06 | DS ---
Physical Examination Vital Signs: Vital Signs Temperature 98.4 F 04/01/17 14:13 Pulse Rate 62 04/01/17 14:13 Respiratory Rate 21 04/01/17 14:13 Blood Pressure 115/67 04/01/17 14:13 O2 Sat by Pulse Oximetry (%) 100 04/01/17 09:00 Labs: CBC, BMP 04/01/17 07:00 04/01/17 07:00 Discharge Summary Reason For Visit: ACUTE DILIRIUM Current Active Problems Agitation states as acute reaction to exceptional (gross) stress (Acute) Delirium (Acute) Hospital Course: Left AMA Condition: Stable - Instructions Disposition: AGAINST MEDICAL ADVICE - Home Medications Comprehensive Discharge Medication List: Ambulatory Orders Unobtainable [Unobtainable] 03/29/17
--- NOTE | 2017-04-01 17:18 | PN ---
[facility] Progress Note (SOAP) Subjective: pateint does not want to stay to complete detox as ordered, detox schedule accelerated, no cmplaints Objective: 04/01/17 17:16 Vital Signs - 24 hr 03/31/17 03/31/17 04/01/17 21:00 22:00 02:00 Temperature 98.7 F 98.5 F Pulse Rate 68 58 L Respiratory 18 18 Rate Blood Pressure 99/68 113/74 O2 Sat by Pulse 100 Oximetry (%) 04/01/17 04/01/17 04/01/17 06:00 09:00 10:00 Temperature 98.4 F Pulse Rate 77 79 Respiratory 20 20 22 Rate Blood Pressure 113/68 120/75 O2 Sat by Pulse 100 Oximetry (%) 04/01/17 14:13 Temperature 98.4 F Pulse Rate 62 Respiratory 21 Rate Blood Pressure 115/67 O2 Sat by Pulse Oximetry (%) Laboratory Tests 03/29/17 03/29/17 03/29/17 07:30 07:30 07:30 WBC 7.1 RBC 4.86 Hgb 14.0 Hct 43.5 MCV 89.5 MCH 28.9 MCHC 32.3 RDW 14.4 Plt Count 234 MPV 8.6 Neutrophils % 52.6 Lymphocytes % 38.1 Monocytes % 7.4 Eosinophils % 1.1 Basophils % 0.8 PT with INR INR PTT (Actin FS) Puncture Site ABG pH ABG pCO2 at Pt Temp ABG pO2 at Pt Temp ABG HCO3 ABG O2 Sat (Measured) ABG O2 Content ABG Base Excess Gigi Test Carboxyhemoglobin Methemoglobin O2 Delivery Device Oxygen Flow Rate Vent Rate Mechanical Rate PEEP Pressure Support Vent Sodium 138 Potassium 3.9 Chloride 106 Carbon Dioxide 23 D Anion Gap 9 BUN 7 D Creatinine 0.9 Creat Clearance w eGFR > 60 Random Glucose 92 Lactic Acid Calcium 9.3 Phosphorus Magnesium Total Bilirubin 0.8 D AST 16 ALT 24 Alkaline Phosphatase 67 Creatine Kinase 404 H Creatine Kinase Index 0.4 CK-MB (CK-2) 1.88 Troponin I < 0.02 Total Protein 7.5 Albumin 4.3 Lipase Serum , Qual Negative Urine Color Urine Appearance Urine pH Ur Specific [place] Urine Protein Urine Glucose (UA) Urine Ketones Urine Blood Urine Nitrite Urine Bilirubin Urine Urobilinogen Ur Leukocyte Esterase Urine WBC (Auto) Urine RBC (Auto) Urine Mucus Urine HCG, Qual Salicylates Opiates Screen Methadone Screen Acetaminophen Barbiturate Screen Phencyclidine Screen Ur Amphetamines Screen MDMA (Ecstasy) Screen Benzodiazepines Screen Cocaine Screen U Marijuana (THC) Screen Alcohol, Quantitative 03/29/17 03/29/17 03/29/17 07:30 07:30 08:32 WBC RBC Hgb Hct MCV MCH MCHC RDW Plt Count MPV Neutrophils % Lymphocytes % Monocytes % Eosinophils % Basophils % PT with INR INR PTT (Actin FS) Puncture Site ABG pH ABG pCO2 at Pt Temp ABG pO2 at Pt Temp ABG HCO3 ABG O2 Sat (Measured) ABG O2 Content ABG Base Excess Gigi Test Carboxyhemoglobin Methemoglobin O2 Delivery Device Oxygen Flow Rate Vent Rate Mechanical Rate PEEP Pressure Support Vent Sodium Potassium Chloride Carbon Dioxide Anion Gap BUN Creatinine Creat Clearance w eGFR Random Glucose Lactic Acid 3.3 H* Calcium Phosphorus Magnesium Total Bilirubin AST ALT Alkaline Phosphatase Creatine Kinase Cancelled Creatine Kinase Index CK-MB (CK-2) Troponin I Cancelled Total Protein Albumin Lipase Serum , Qual Urine Color Urine Appearance Urine pH Ur Specific [place] Urine Protein Urine Glucose (UA) Urine Ketones Urine Blood Urine Nitrite Urine Bilirubin Urine Urobilinogen Ur Leukocyte Esterase Urine WBC (Auto) Urine RBC (Auto) Urine Mucus Urine HCG, Qual Salicylates < 4.0 Opiates Screen Methadone Screen Acetaminophen < 2.000 L Barbiturate Screen Phencyclidine Screen Ur Amphetamines Screen MDMA (Ecstasy) Screen Benzodiazepines Screen Cocaine Screen U Marijuana (THC) Screen Alcohol, Quantitative < 5.0 03/29/17 03/29/17 03/29/17 13:21 14:30 15:01 WBC RBC Hgb Hct MCV MCH MCHC RDW Plt Count MPV Neutrophils % Lymphocytes % Monocytes % Eosinophils % Basophils % PT with INR INR PTT (Actin FS) Puncture Site Left radial ABG pH 7.39 ABG pCO2 at Pt Temp 38.2 ABG pO2 at Pt Temp 234.0 H* ABG HCO3 22.4 ABG O2 Sat (Measured) 99.5 H ABG O2 Content 18.6 ABG Base Excess -1.8 Gigi Test Positive Carboxyhemoglobin 0.7 Methemoglobin 0.7 O2 Delivery Device Mech vent Oxygen Flow Rate 50 Vent Rate 14 Mechanical Rate Yes PEEP 0.0 Pressure Support Vent 400 Sodium Potassium Chloride Carbon Dioxide Anion Gap BUN Creatinine Creat Clearance w eGFR Random Glucose Lactic Acid 1.0 Calcium Phosphorus Magnesium Total Bilirubin AST ALT Alkaline Phosphatase Creatine Kinase Creatine Kinase Index CK-MB (CK-2) Troponin I Total Protein Albumin Lipase Serum , Qual Urine Color Ltyellow Urine Appearance Clear Urine pH 7.0 Ur Specific [place] 1.011 Urine Protein Negative Urine Glucose (UA) Negative Urine Ketones Negative Urine Blood Negative Urine Nitrite Negative Urine Bilirubin Negative Urine Urobilinogen Negative Ur Leukocyte Esterase Trace Urine WBC (Auto) <1 Urine RBC (Auto) 23 Urine Mucus Rare Urine HCG, Qual Negative Salicylates Opiates Screen Methadone Screen Acetaminophen Barbiturate Screen Phencyclidine Screen Ur Amphetamines Screen MDMA (Ecstasy) Screen Benzodiazepines Screen Cocaine Screen U Marijuana (THC) Screen Alcohol, Quantitative 03/29/17 03/29/17 03/29/17 15:01 19:45 19:45 WBC RBC Hgb Hct MCV MCH MCHC RDW Plt Count MPV Neutrophils % Lymphocytes % Monocytes % Eosinophils % Basophils % PT with INR INR PTT (Actin FS) Puncture Site ABG pH ABG pCO2 at Pt Temp ABG pO2 at Pt Temp ABG HCO3 ABG O2 Sat (Measured) ABG O2 Content ABG Base Excess Gigi Test Carboxyhemoglobin Methemoglobin O2 Delivery Device Oxygen Flow Rate Vent Rate Mechanical Rate PEEP Pressure Support Vent Sodium Potassium Chloride Carbon Dioxide Anion Gap BUN Creatinine Creat Clearance w eGFR Random Glucose Lactic Acid 0.8 Calcium Phosphorus Magnesium Total Bilirubin AST ALT Alkaline Phosphatase Creatine Kinase 2451 H Creatine Kinase Index 0.4 CK-MB (CK-2) 11.018 H Troponin I 0.02 Total Protein Albumin Lipase Serum , Qual Urine Color Urine Appearance Urine pH Ur Specific [place] Urine Protein Urine Glucose (UA) Urine Ketones Urine Blood Urine Nitrite Urine Bilirubin Urine Urobilinogen Ur Leukocyte Esterase Urine WBC (Auto) Urine RBC (Auto) Urine Mucus Urine HCG, Qual Salicylates Opiates Screen Positive Methadone Screen Positive Acetaminophen Barbiturate Screen Negative Phencyclidine Screen Negative Ur Amphetamines Screen Negative MDMA (Ecstasy) Screen Negative Benzodiazepines Screen Positive Cocaine Screen Negative U Marijuana (THC) Screen Positive Alcohol, Quantitative 03/29/17 03/30/17 03/30/17 19:45 05:10 05:10 WBC 6.6 RBC 3.72 D Hgb 11.1 D Hct 33.3 D MCV 89.5 MCH 29.8 MCHC 33.3 RDW 14.5 Plt Count 192 MPV 8.6 Neutrophils % 52.5 Lymphocytes % 37.5 Monocytes % 8.4 Eosinophils % 1.1 Basophils % 0.5 PT with INR 13.00 H INR 1.15 H PTT (Actin FS) 27.8 Puncture Site ABG pH ABG pCO2 at Pt Temp ABG pO2 at Pt Temp ABG HCO3 ABG O2 Sat (Measured) ABG O2 Content ABG Base Excess Gigi Test Carboxyhemoglobin Methemoglobin O2 Delivery Device Oxygen Flow Rate Vent Rate Mechanical Rate PEEP Pressure Support Vent Sodium Potassium Chloride Carbon Dioxide Anion Gap BUN Creatinine Creat Clearance w eGFR Random Glucose Lactic Acid Calcium Phosphorus Magnesium Total Bilirubin AST ALT Alkaline Phosphatase Creatine Kinase Creatine Kinase Index CK-MB (CK-2) Troponin I Total Protein Albumin Lipase 102 Serum , Qual Urine Color Urine Appearance Urine pH Ur Specific [place] Urine Protein Urine Glucose (UA) Urine Ketones Urine Blood Urine Nitrite Urine Bilirubin Urine Urobilinogen Ur Leukocyte Esterase Urine WBC (Auto) Urine RBC (Auto) Urine Mucus Urine HCG, Qual Salicylates Opiates Screen Methadone Screen Acetaminophen Barbiturate Screen Phencyclidine Screen Ur Amphetamines Screen MDMA (Ecstasy) Screen Benzodiazepines Screen Cocaine Screen U Marijuana (THC) Screen Alcohol, Quantitative 03/30/17 03/30/17 03/31/17 05:10 05:10 10:10 WBC 10.4 H D RBC 3.85 Hgb 11.3 Hct 34.3 MCV 89.1 MCH 29.3 MCHC 32.9 RDW 14.4 Plt Count 162 MPV 8.0 Neutrophils % 72.7 D Lymphocytes % 20.2 D Monocytes % 5.8 Eosinophils % 0.9 Basophils % 0.4 PT with INR INR PTT (Actin FS) Puncture Site ABG pH ABG pCO2 at Pt Temp ABG pO2 at Pt Temp ABG HCO3 ABG O2 Sat (Measured) ABG O2 Content ABG Base Excess Gigi Test Carboxyhemoglobin Methemoglobin O2 Delivery Device Oxygen Flow Rate Vent Rate Mechanical Rate PEEP Pressure Support Vent Sodium 146 H Potassium 3.5 Chloride 113 H Carbon Dioxide 25 Anion Gap 8 BUN 5 L D Creatinine 0.7 D Creat Clearance w eGFR > 60 Random Glucose 93 Lactic Acid Calcium 8.5 Phosphorus 4.4 Magnesium 1.8 Total Bilirubin 0.3 D AST 41 H D ALT 22 Alkaline Phosphatase 46 D Creatine Kinase 1853 H Creatine Kinase Index 0.5 CK-MB (CK-2) 10.960 H Troponin I Total Protein 5.3 L D Albumin 3.1 L D Lipase Serum , Qual Urine Color Urine Appearance Urine pH Ur Specific [place] Urine Protein Urine Glucose (UA) Urine Ketones Urine Blood Urine Nitrite Urine Bilirubin Urine Urobilinogen Ur Leukocyte Esterase Urine WBC (Auto) Urine RBC (Auto) Urine Mucus Urine HCG, Qual Salicylates Opiates Screen Methadone Screen Acetaminophen Barbiturate Screen Phencyclidine Screen Ur Amphetamines Screen MDMA (Ecstasy) Screen Benzodiazepines Screen Cocaine Screen U Marijuana (THC) Screen Alcohol, Quantitative 03/31/17 04/01/17 04/01/17 10:10 07:00 07:00 WBC 9.5 RBC 3.80 Hgb 11.0 Hct 33.9 MCV 89.3 MCH 29.1 MCHC 32.5 RDW 14.5 Plt Count 160 MPV 8.4 Neutrophils % 76.2 Lymphocytes % 16.0 D Monocytes % 6.3 Eosinophils % 1.3 Basophils % 0.2 PT with INR INR PTT (Actin FS) Puncture Site ABG pH ABG pCO2 at Pt Temp ABG pO2 at Pt Temp ABG HCO3 ABG O2 Sat (Measured) ABG O2 Content ABG Base Excess Gigi Test Carboxyhemoglobin Methemoglobin O2 Delivery Device Oxygen Flow Rate Vent Rate Mechanical Rate PEEP Pressure Support Vent Sodium 141 141 Potassium 3.8 3.7 Chloride 109 H 108 H Carbon Dioxide 27 25 Anion Gap 5 L 8 BUN 5 L 7 D Creatinine 0.9 D 0.8 Creat Clearance w eGFR > 60 > 60 Random Glucose 86 87 Lactic Acid Calcium 8.1 L 8.6 Phosphorus Magnesium 1.7 L 1.8 Total Bilirubin 0.7 D 0.5 D AST 34 24 D ALT 28 D 25 Alkaline Phosphatase 56 D 57 Creatine Kinase 1463 H Creatine Kinase Index 0.1 CK-MB (CK-2) 2.740 Troponin I Total Protein 5.6 L 5.5 L Albumin 3.1 L 3.0 L Lipase Serum , Qual Urine Color Urine Appearance Urine pH Ur Specific [place] Urine Protein Urine Glucose (UA) Urine Ketones Urine Blood Urine Nitrite Urine Bilirubin Urine Urobilinogen Ur Leukocyte Esterase Urine WBC (Auto) Urine RBC (Auto) Urine Mucus Urine HCG, Qual Salicylates Opiates Screen Methadone Screen Acetaminophen Barbiturate Screen Phencyclidine Screen Ur Amphetamines Screen MDMA (Ecstasy) Screen Benzodiazepines Screen Cocaine Screen U Marijuana (THC) Screen Alcohol, Quantitative a and o x3, no tremors, or sweats Assessment: 04/01/17 17:17 pateint advised to complete detox in hospital, will nto stay nd therefore needs to sign out AMA. Can refer to [facility] for rehab bed/aftercare intensive outpatient program if she would like to attend. David Ma MD [phone]
[2017-04-01] MEDS ORDERED: chlordiazePOXIDE 5 MG CAPSULE PO SCH ×2 (18:00→23:00)
[2017-04-02] MEDS ORDERED: chlordiazePOXIDE 5 MG CAPSULE PO SCH (09:00)
[2017-04-02] MEDS ORDERED: METHADONE HCL 10 MG TABLET PO SCH (10:00)
[2017-04-03] MEDS ORDERED: METHADONE HCL 5 MG TABLET PO SCH (06:00)
[2017-04-03] MEDS ORDERED: chlordiazePOXIDE 5 MG CAPSULE PO SCH (09:00)
[2017-04-03] MEDS ORDERED: METHADONE HCL 10 MG TABLET PO SCH (10:00)
[2017-04-04] MEDS ORDERED: METHADONE HCL 5 MG TABLET PO SCH (06:00)
== END 2017-04-01 18:07 | disposition left against medical advice (07) | DRG 53 ==
LOC: JER 07:17 → JERBED 14:34 → JICU 16:55 → J4W 03-31 08:06
PROVIDERS: ADMIT Internal Medicine; ATTEND Registered Nurse
PROC: 0CHY7BZ Insertion of Airway into Mouth and Throat, Via Natural or Artificial Opening (ICD-10-PCS; principal; 2017-03-29)
PROC: 5A1945Z Respiratory Ventilation, 24-96 Consecutive Hours (ICD-10-PCS; 2017-03-29)
PROC: HZ2ZZZZ Detoxification Services for Substance Abuse Treatment (ICD-10-PCS; 2017-03-29)
DX: R56.9 Unspecified convulsions (principal); F10.239 Alcohol dependence with withdrawal, unspecified; F11.23 Opioid dependence with withdrawal; R45.1 Restlessness and agitation; F12.20 Cannabis dependence, uncomplicated; R41.0 Disorientation, unspecified; D64.9 Anemia, unspecified; K21.9 Gastro-esophageal reflux disease without esophagitis; F32.9 Major depressive disorder, single episode, unspecified; F17.200 Nicotine dependence, unspecified, uncomplicated; F10.231 Alcohol dependence with withdrawal delirium
CPT/HCPCS: 36415; 36600; 70450-TC; 71045-TC; 74018-TC; 74176-TC; 80053; 80307; 81003; 81015; 82375; 82550; 82553; 82803; 83050; 83605; 83690; 83735; 84100; 84484; 84703; 85025; 85610; 85730; 87086; 93005; 93010; 94002; 99285-25; J1644

== ENCOUNTER 2017-09-23 15:16 | Inpatient (IN) | payer BC ==
[2017-09-23 17:50] VITALS: BMI 27.9
--- NOTE | 2017-09-23 18:59 | HP ---
COWS - Scale Resting Pulse: 0= [place] 80 or Below Sweatin= Chills/Flushing Restless Observation: 1= Difficult to Sit Still Pupil Size: 0= Normal to Room Light Bone or Joint Aches: 1= Mild Discomfort Runny Nose/ Eye Tearin= Runny Nose/Eyes GI Upset > 30mins: 3= Vomiting/Diarrhea Tremor Observation: 1= Tremor [place], Not Seen Yawning Observation: 1= 1-2x During Session Anxiety or Irritability: 2=Irritable/Anxious Goose Flesh Skin: 0=Smooth Skin COWS Score: 12 CIWA Score - CIWA Score Nausea/Vomitin Muscle Tremors: 2 Anxiety: 2 Agitation: 1-Slight > Activity Paroxysmal Sweats: 2 Orientation: 0-Oriented Tacttile Disturbances: 2-Mild Itch/Numbness/Burn Auditory Disturbances: 0-None Visual Disturbances: 0-None Headache: 0-None Present CIWA-Ar Total Score: 14 Admission ROS S - HPI Chief Complaint: withdrawal symptoms Allergies/Adverse Reactions: Allergies Allergy/AdvReac Type Severity Reaction Status Date / Time strawberry Allergy Intermediate Verified 09/23/17 18:28 ketorolac [From Toradol] AdvReac Verified 09/23/17 18:28 History of Present Illness: 27 yo female with hx of nicotine, heroin and xanax dependence is here seeking detox. PMHX: seizures last episode March 2017, depression and anxiety. Denies suicidal / homicidal ideation. Longest period of sobriety 1 year. Last detox [facility] March 2017. Exam Limitations: No Limitations - Ebola screening Have you traveled outside of the country in the last 21 days: No (N) Have you had contact with anyone from an Ebola affected area: No Have you been sick,other than usual withdrawal symptoms: No Do you have a fever: No - Review of Systems Constitutional: Chills, Diaphoresis, Loss of Appetite, Changes in sleep, Unintentional Wgt. Loss (20 lbs 6 months) EENT: reports: Nose Congestion Respiratory: reports: No Symptoms reported Cardiac: reports: No Symptoms Reported GI: reports: Diarrhea, Nausea, Poor Appetite, Poor Fluid Intake, Vomiting, Abdominal cramping : reports: No Symptoms Reported Musculoskeletal: reports: Back Pain, Joint Pain Integumentary: reports: Pruritus Neuro: reports: See HPI, Seizure, Dizziness Endocrine: reports: No Symptoms Reported Hematology: reports: No Symptoms Reported, Anemia (no hx iron infusion / blood transfusion) Psychiatric: reports: Orientated x3, Depressed Other Systems: Reviewed and Negative Patient History - Patient Medical History Hx Anemia: Yes Hx Asthma: No Hx Chronic Obstructive Pulmonary Disease (COPD): No Hx Cancer: No Hx Cardiac Disorders: No Hx Congestive Heart Failure: No Hx Hypertension: No Hx Hypercholesterolemia: No Hx Pacemaker: No HX Cerebrovascular Accident: No Hx Seizures: No Hx Dementia: No Hx Diabetes: No Hx Gastrointestinal Disorders: Yes (acid reflux) Hx Liver Disease: No Hx Genitourinary Disorders: No Hx Sexually Transmitted Disorders: No Hx Renal Disease (ESRD): No Hx Thyroid Disease: No Hx Human Immunodeficiency Virus (HIV): No Hx Hepatitis C: No (last tested in the ED on month) Hx Depression: Yes Hx Suicide Attempt: No (DENIES) Hx Bipolar Disorder: No Hx Schizophrenia: No - Patient Surgical History Past Surgical History: No Hx Neurologic Surgery: No Hx Cataract Extraction: No Hx Cardiac Surgery: No Hx Lung Surgery: No Hx Breast Surgery: No Hx Breast Biopsy: No Hx Abdominal Surgery: No Hx Appendectomy: No Hx Cholecystectomy: No Hx Genitourinary Surgery: No Hx Section: No Hx Orthopedic Surgery: No Hx Hysterectomy: No Anesthesia Reaction: No - PPD History Previous Implant?: No Documented Results: Negative w/o proof Implanted On Prior R Admission?: No PPD to be Administered?: Yes - Reproductive History Patient is a Female of Child Bearing Age (11 -55 yrs old): Yes Last Menstrual Period: 09/18/17 Patient : No - Smoking Cessation Smoking history: Current every day smoker Have you smoked in the past 12 months: Yes Aproximately how many cigarettes per day: 20 Hx Chewing Tobacco Use: No Initiated information on smoking cessation: Yes 'Breaking Loose' booklet given: 09/23/17 - Substance & Tx. History Hx Alcohol Use: No Hx Substance Use: Yes Substance Use Type: Heroin, Tranquilizers Hx Substance Use Treatment: Yes (March 2017) - Substances Abused Alprazolam (Xanax) Route: Oral Frequency: Daily Amount used: 4MG Age of first use: 23 Date of Last Use: 09/23/17 Heroin Route: SNIFF Frequency: Daily Amount used: 1 BUNDLE Age of first use: 23 Date of Last Use: 07/02/18 Family Disease History - Family Disease History Family History: Unable to Obtain Admission Physical Exam [facility] - Vital Signs Vital Signs: Vital Signs - 24 hr 09/23/17 17:44 Temperature 97.1 F L Pulse Rate 76 Respiratory 18 Rate Blood Pressure 145/89 - Physical General Appearance: Yes: Disheveled, Mild Distress, Sweating, Anxious HEENTM: Yes: EOMI, Hearing grossly Normal, Normal ENT Inspection, Normocephalic , Normal Voice, TERE, Pharynx Normal, Tm's normal, Nasal Congestion, Other ( cheitlithis) Respiratory: Yes: Chest Non-Tender, Lungs Clear, Normal Breath Sounds, No Respiratory Distress, No Accessory Muscle Use Neck: Yes: No masses,lesions,Nodules, Trachea in good position Breast: Yes: Breast Exam Deferred Cardiology: Yes: Within Normal Limits, Regular Rhythm, Regular Rate Abdominal: Yes: Normal Bowel Sounds, Non Tender, Flat, Soft, Hepatomegaly Back: Yes: Normal Inspection Musculoskeletal: Yes: full range of Motion, Gait Steady, Pelvis Stable, Back pain Extremities: Yes: Within Normal Limits Neurological: 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, Fully Oriented, Alert, Motor Strength 5/5, Depressed Affect Integumentary: Yes: Normal Color, Warm, Diaphoresis Lymphatic: Yes: Within Normal Limits - Diagnostic (1) History of seizure Current Visit: Yes Status: Chronic (2) Sedative, hypnotic or anxiolytic dependence with withdrawal, unspecified Current Visit: Yes Status: Acute (3) Opioid dependence with withdrawal Current Visit: Yes Status: Acute (4) GERD (gastroesophageal reflux disease) Current Visit: Yes Status: Chronic Qualifiers: Esophagitis presence: esophagitis presence not specified Qualified Code(s) : K21.9 - Gastro-esophageal reflux disease without esophagitis Cleared for Admission [facility] - Detox or Rehab [facility] Level of Care: Medically Managed Detox Regimen/Protocol: Methadone/Valium [facility] Breath Alcohol Content Breath Alcohol Content: 0 Urine Pregancy Test - Result Urine Test Results: Negative- NO Line Present Urine Drug Screen - Results Drug Screen Negative: No Urine Drug Screen Results: THC-Marijuana, OPI-Opiates, BZO-Benzodiazepines
[2017-09-23] MEDS ORDERED: NICOTINE POLACRILEX 2 MG GUM BC PRN (19:03)
[2017-09-23] MEDS ORDERED: MAGNESIUM HYDROX 2400MG/30ML ORAL SUSPENSION 30 ML CUP PO PRN (19:03)
[2017-09-23] MEDS ORDERED: MAG HYDROX/AL HYDROX/SIMETH 30 ML UNIT-DOSE CUP PO PRN (19:03)
[2017-09-23] MEDS ORDERED: MAGNESIUM CITRATE 300 ML BOTTLE PO PRN (19:03)
[2017-09-23] MEDS ORDERED: P-EPHED 60MG/TRIPROLIDI 2.5MG TABLET PO PRN (19:03)
[2017-09-23] MEDS ORDERED: MENTHOL/PHENOL 1 EACH UD MM PRN (19:03)
[2017-09-23] MEDS ORDERED: guaiFENesin/D-METHORPHAN HB 10 ML UNIT-DOSE CUPS PO PRN (19:03)
[2017-09-23] MEDS ORDERED: LOPERAMIDE HCL 2 MG CAPSULE PO PRN (19:03)
[2017-09-23] MEDS ORDERED: diazePAM 5 MG TABLET PO ONE (19:15)
[2017-09-23] MEDS ORDERED: METHADONE HCL 10 MG TABLET (FOR DETOX USE ONLY) PO ONE ×2 (19:15→23:00)
[2017-09-23] MEDS ORDERED: MELATONIN 5 MG TABLETS PO PRN (22:00)
[2017-09-23] MEDS: THIAMINE HCL 100 MG TABLET (FP) PO SCH (22:23)
[2017-09-23] MEDS: CYCLOBENZAPRINE HCL 5 MG TABLET PO SCH (22:23)
[2017-09-23] MEDS: diazePAM 5 MG TABLET PO SCH (22:23)
[2017-09-23 23:12] LABS: URINE APPEARANCE CLOUDY; URINE BILIRUBIN NEGATIVE (<2.0 mg/dL); URINE COLOR YELLOW; URINE GLUCOSE (UA) NEGATIVE (NEGATIVE); URINE KETONE NEGATIVE (NEGATIVE); URINE NITRITE NEGATIVE (NEGATIVE); URINE PROTEIN NEGATIVE (NEGATIVE); URINE UROBILINOGEN NEGATIVE mg/dL (0.2-1.0)
[2017-09-23 23:24] LABS: URINE LEUK ESTERASE 3+ (NEGATIVE)
[2017-09-23 23:30] LABS: EPI CELLS MANY /HPF (FEW); URINE BACTERIA MODERATE /hpf (NONE SEEN); URINE MUCUS RARE
[2017-09-24] MEDS: diazePAM 5 MG TABLET PO SCH ×3 (05:35→22:18)
[2017-09-24] MEDS: CYCLOBENZAPRINE HCL 5 MG TABLET PO SCH ×3 (05:35→22:18)
[2017-09-24] MEDS: ACETAMINOPHEN 325 MG TABLET (FP) PO PRN (05:38)
[2017-09-24] MEDS: diazePAM 5 MG TABLET PO PRN ×2 (08:56→18:15)
[2017-09-24] MEDS ORDERED: METHADONE HCL 10 MG TABLET (FOR DETOX USE ONLY) PO SCH (10:00)
[2017-09-24] MEDS: PRENATAL VITAMINS W/ FOLIC ACID TABLET (FP) PO SCH (10:33)
[2017-09-24] MEDS: NICOTINE 21 MG/24 HOURS TOPICAL PATCH TD SCH (10:33)
--- NOTE | 2017-09-24 11:39 | PN ---
[facility] CIWA - CIWA Score Nausea/Vomitin-No Nausea/No Vomiting Muscle Tremors: 3 Anxiety: 4-Mod. Anxious/Guarded Agitation: 3 Paroxysmal Sweats: 1-Minimal Palms Moist Orientation: 0-Oriented Tacttile Disturbances: 0-None Auditory Disturbances: 0-None Visual Disturbances: 0-None Headache: 1-Very Mild CIWA-Ar Total Score: 12 [facility] COWS - Scale Resting Pulse: 0= [place] 80 or Below Sweatin= Chills/Flushing Restless Observation: 1= Difficult to Sit Still Pupil Size: 0= Normal to Room Light Bone or Joint Aches: 2= Severe Diffuse Aches Runny Nose/ Eye Tearin= Runny Nose/Eyes GI Upset > 30mins: 1= Stomach Cramp Tremor Observation of Outstretched Hands: 2= Slight Tremor Visible Yawning Observation: 1= 1-2x During Session Anxiety or Irritability: 2=Irritable/Anxious Goose Flesh Skin: 0=Smooth Skin COWS Score: 12 [facility] Progress Note (SOAP) Subjective: joint pain headache body ache sweat tremor irritable restlessness Objective: 09/24/17 11:40 Vital Signs Temperature 99.3 F 09/24/17 11:39 Pulse Rate 80 09/24/17 11:39 Respiratory Rate 20 09/24/17 11:39 Blood Pressure 135/89 09/24/17 11:39 O2 Sat by Pulse Oximetry (%) Laboratory Last Values Urine Color Yellow 09/23/17 Unknown Urine Appearance Cloudy 09/23/17 Unknown Urine pH 6.0 (5.0-8.0) 09/23/17 Unknown Ur Specific [place] 1.018 (1.001-1.035) 09/23/17 Unknown Urine Protein Negative (NEGATIVE) 09/23/17 Unknown Urine Glucose (UA) Negative (NEGATIVE) 09/23/17 Unknown Urine Ketones Negative (NEGATIVE) 09/23/17 Unknown Urine Blood 1+ (NEGATIVE) H 09/23/17 Unknown Urine Nitrite Negative (NEGATIVE) 09/23/17 Unknown Urine Bilirubin Negative (<2.0 mg/dL) 09/23/17 Unknown Urine Urobilinogen Negative mg/dL (0.2-1.0) 09/23/17 Unknown Ur Leukocyte Esterase 3+ (NEGATIVE) H 09/23/17 Unknown Urine WBC (Auto) 90 /hpf (3-5) 09/23/17 Unknown Urine RBC (Auto) 18 /hpf (0-3) 09/23/17 Unknown Ur Epithelial Cells Many /HPF (FEW) 09/23/17 Unknown Urine Bacteria Moderate /hpf (NONE SEEN) 09/23/17 Unknown Urine Mucus Rare 09/23/17 Unknown lab noted uti Assessment: 09/24/17 11:42 withdrawal sx uti Plan: continue detox bactrim ds bid
[2017-09-24] MEDS: SULFAMETHOXAZOLE/TRIMETHOPRIM 800MG/160MG D.S. TABLET PO SCH ×2 (12:20→22:18)
--- NOTE | 2017-09-24 13:13 | EKG ---
Test Reason : Blood Pressure : / mmHG Vent. Rate : 073 BPM Atrial Rate : 073 BPM P-R Int : 158 ms QRS Dur : 092 ms QT Int : 398 ms P-R-T Axes : 071 -31 002 degrees QTc Int : 438 ms SINUS RHYTHM WITH SINUS ARRHYTHMIA LEFT AXIS DEVIATION BASELINE ARTIFACT ABNORMAL ECG Confirmed by MD LOLY, MOJGAN ([id number]) on 09/24/2017 1:13:02 PM Referred By: Confirmed By:MOJGAN SALCIDO MD
[2017-09-24 15:03] LABS: CHLORIDE 103 mmol/L (98-107); POTASSIUM 4.1 mmol/L (3.5-5.1); SODIUM 140 mmol/L (136-145)
[2017-09-24 15:08] LABS: HEMATOCRIT 41.5 % (32.4-45.2); HEMOGLOBIN 13.5 GM/dL (10.7-15.3); MCHC 32.4 g/dl (32.0-36.0); MEAN CELL VOLUME 89.5 fl (80-96); MEAN PLT VOLUME 8.9 fl (7.5-11.1); PLATELET COUNT 252 K/MM3 (134-434); RBC 4.64 M/mm3 (3.60-5.2); RDW 15.9 % (11.6-15.6); WHITE BLOOD COUNT 6.2 K/mm3 (4.0-10.0)
[2017-09-24 15:13] LABS: ALBUMIN 4.4 g/dl (3.4-5.0); ALK PHOS 63 U/L (45-117); ANION GAP 12 (8-16); BILIRUBIN,TOTAL 0.4 mg/dL (0.2-1.0); BLOOD UREA NITROGEN 8 mg/dL (7-18); CALCIUM 9.5 mg/dL (8.5-10.1); CO2 25 mmol/L (21-32); GLUCOSE,RANDOM 94 mg/dL (74-106); SGOT/AST 13 U/L (15-37); SGPT/ALT 26 U/L (12-78); TOT PROT 7.5 g/dl (6.4-8.2)
--- NOTE | 2017-09-24 16:13 | CONSULT ---
[facility] Psychiatric Consult - Data Date of interview: 09/24/17 Admission source: [facility] Identifying data: Readmission to [facility] for this 27 y/o female seeking detox on for heroin and xanax dependence.Patient is single,a mother of two (claimed four dependents in a previous interview),domiciled and employed. Substance Abuse History: Confirmed by the patient in this session.Smoking history: Current every day smoker. Have you smoked in the past 12 months: Yes. Aproximately how many cigarettes per day: 20. Hx Chewing Tobacco Use: No. Initiated information on smoking cessation: Yes. 'Breaking Loose' booklet given : 09/23/17. - Substance & Tx. History. Hx Alcohol Use: No. Hx Substance Use: Yes. Substance Use Type: Heroin, Tranquilizers. Hx Substance Use Treatment: Yes (March 2017). - Substances Abused. Alprazolam (Xanax). Route: Oral. Frequency: Daily. Amount used: 4MG. Age of first use: 23. Date of Last Use : 09/23/17. Heroin. Route: SNIFF. Frequency: Daily. Amount used: 1 BUNDLE. Age of first use: 23. Date of Last Use: 09/23/17 Medical History: Anemia,GERD and a history of withdrawal-related seizures. Psychiatric History: Patient denies. Physical/Sexual Abuse/Trauma History: Patient denies. Additional Comment: Urine Drug Screen Results: THC-Marijuana, OPI-Opiates, BZO- Benzodiazepines.Noted. Mental Status Exam - Mental Status Exam Alert and Oriented to: Time, Place, Person Cognitive Function: Good Patient Appearance: Well Groomed (thin habitus,petite frame) Mood: Hopeful, Euthymic Affect: Appropriate, Normal Range Patient Behavior: Fatigued, Cooperative Speech Pattern: Clear Voice Loudness: Normal Thought Process: Intact, Goal Oriented Thought Disorder: Not Present Hallucinations: Denies Suicidal Ideation: Denies Homicidal Ideation: Denies Insight/Judgement: Poor Sleep: Poorly, Difficulty falling asleep Appetite: Good Muscle strength/Tone: Normal Gait/Station: Normal Psychiatric Findings - Problem List ([place] 1, 2,3) (1) Opioid dependence with withdrawal Current Visit: Yes Status: Acute (2) Sedative, hypnotic or anxiolytic dependence with withdrawal, unspecified Current Visit: Yes Status: Acute (3) Cannabis dependence, uncomplicated Current Visit: Yes Status: Acute (4) Insomnia Current Visit: Yes Status: Acute - Initial Treatment Plan Initial Treatment Plan: Psychoeducation.Sleep hygiene.Detoxification.Ambien 5 mg po hs prn.Patient is made aware of the risk of parasomnias.Agrees with this careplan.Observation.
[2017-09-24] MEDS: THIAMINE HCL 100 MG TABLET (FP) PO SCH (22:18)
[2017-09-24] MEDS: ZOLPIDEM TARTRATE 5 MG TABLET PO PRN (22:19)
[2017-09-25] MEDS: CYCLOBENZAPRINE HCL 5 MG TABLET PO SCH ×2 (06:11→14:24)
[2017-09-25] MEDS: diazePAM 5 MG TABLET PO PRN ×3 (06:12→19:12)
[2017-09-25] MEDS: ACETAMINOPHEN 325 MG TABLET (FP) PO PRN ×3 (06:14→17:42)
[2017-09-25] MEDS: diazePAM 5 MG TABLET PO SCH ×2 (10:53→23:07)
[2017-09-25] MEDS: PRENATAL VITAMINS W/ FOLIC ACID TABLET (FP) PO SCH (10:53)
[2017-09-25] MEDS: SULFAMETHOXAZOLE/TRIMETHOPRIM 800MG/160MG D.S. TABLET PO SCH (10:53)
[2017-09-25] MEDS: METHADONE HCL 5 MG TABLET (FOR DETOX USE ONLY) PO SCH (10:53)
[2017-09-25] MEDS: NICOTINE 21 MG/24 HOURS TOPICAL PATCH TD SCH (10:54)
[2017-09-25] MEDS ORDERED: COLLOIDAL OATMEAL 1 BAR EACH TP PRN (11:04)
--- NOTE | 2017-09-25 11:43 | PN ---
[facility] CIWA - CIWA Score Nausea/Vomitin-Mild Nausea/No Vomiting Muscle Tremors: 3 Anxiety: 2 Agitation: 2 Paroxysmal Sweats: 1-Minimal Palms Moist Orientation: 0-Oriented Tacttile Disturbances: 2-Mild Itch/Numbness/Burn Auditory Disturbances: 0-None Visual Disturbances: 0-None Headache: 0-None Present CIWA-Ar Total Score: 11 S COWS - Scale Resting Pulse: 0= MO 80 or Below Sweatin= Chills/Flushing Restless Observation: 1= Difficult to Sit Still Pupil Size: 0= Normal to Room Light Bone or Joint Aches: 1= Mild Discomfort Runny Nose/ Eye Tearin= Nasal Congestion GI Upset > 30mins: 1= Stomach Cramp Tremor Observation of Outstretched Hands: 2= Slight Tremor Visible Yawning Observation: 2= >3x During Session Anxiety or Irritability: 2=Irritable/Anxious Goose Flesh Skin: 0=Smooth Skin COWS Score: 11 [facility] Progress Note (SOAP) Subjective: body ache dry itchy skin sweat tremor Objective: 09/25/17 11:42 Vital Signs Temperature 98.2 F 09/25/17 09:57 Pulse Rate 89 09/25/17 09:57 Respiratory Rate 18 09/25/17 09:57 Blood Pressure 114/73 09/25/17 09:57 O2 Sat by Pulse Oximetry (%) Laboratory Last Values WBC 6.2 K/mm3 (4.0-10.0) 09/24/17 10:10 RBC 4.64 M/mm3 (3.60-5.2) 09/24/17 10:10 Hgb 13.5 GM/dL (10.7-15.3) 09/24/17 10:10 Hct 41.5 % (32.4-45.2) D 09/24/17 10:10 MCV 89.5 fl (80-96) 09/24/17 10:10 MCH 29.0 pg (25.7-33.7) 09/24/17 10:10 MCHC 32.4 g/dl (32.0-36.0) 09/24/17 10:10 RDW 15.9 % (11.6-15.6) H 09/24/17 10:10 Plt Count 252 K/MM3 (134-434) D 09/24/17 10:10 MPV 8.9 fl (7.5-11.1) 09/24/17 10:10 Sodium 140 mmol/L (136-145) 09/24/17 10:10 Potassium 4.1 mmol/L (3.5-5.1) 09/24/17 10:10 Chloride 103 mmol/L (98-107) 09/24/17 10:10 Carbon Dioxide 25 mmol/L (21-32) 09/24/17 10:10 Anion Gap 12 (8-16) 09/24/17 10:10 BUN 8 mg/dL (7-18) 09/24/17 10:10 Creatinine 1.0 mg/dL (0.55-1.02) 09/24/17 10:10 Creat Clearance w eGFR > 60 (>60) 09/24/17 10:10 Random Glucose 94 mg/dL (74-106) 09/24/17 10:10 Calcium 9.5 mg/dL (8.5-10.1) 09/24/17 10:10 Total Bilirubin 0.4 mg/dL (0.2-1.0) 09/24/17 10:10 AST 13 U/L (15-37) L 09/24/17 10:10 ALT 26 U/L (12-78) 09/24/17 10:10 Alkaline Phosphatase 63 U/L (45-117) 09/24/17 10:10 Total Protein 7.5 g/dl (6.4-8.2) 09/24/17 10:10 Albumin 4.4 g/dl (3.4-5.0) 09/24/17 10:10 Urine Color Yellow 09/23/17 Unknown Urine Appearance Cloudy 09/23/17 Unknown Urine pH 6.0 (5.0-8.0) 09/23/17 Unknown Ur Specific [place] 1.018 (1.001-1.035) 09/23/17 Unknown Urine Protein Negative (NEGATIVE) 09/23/17 Unknown Urine Glucose (UA) Negative (NEGATIVE) 09/23/17 Unknown Urine Ketones Negative (NEGATIVE) 09/23/17 Unknown Urine Blood 1+ (NEGATIVE) H 09/23/17 Unknown Urine Nitrite Negative (NEGATIVE) 09/23/17 Unknown Urine Bilirubin Negative (<2.0 mg/dL) 09/23/17 Unknown Urine Urobilinogen Negative mg/dL (0.2-1.0) 09/23/17 Unknown Ur Leukocyte Esterase 3+ (NEGATIVE) H 09/23/17 Unknown Urine WBC (Auto) 90 /hpf (3-5) 09/23/17 Unknown Urine RBC (Auto) 18 /hpf (0-3) 09/23/17 Unknown Ur Epithelial Cells Many /HPF (FEW) 09/23/17 Unknown Urine Bacteria Moderate /hpf (NONE SEEN) 09/23/17 Unknown Urine Mucus Rare 09/23/17 Unknown RPR Titer Nonreactive (NONREACTIVE) 09/24/17 10:10 09/25/17 11:42 lab noted uti Assessment: 09/25/17 11:43 withdrawal sx uti Plan: continue detox bactrim ds continue increase oral fluid personal hygiene
[2017-09-25] MEDS: ZOLPIDEM TARTRATE 5 MG TABLET PO PRN (23:07)
[2017-09-25] MEDS: THIAMINE HCL 100 MG TABLET (FP) PO SCH (23:07)
[2017-09-26] MEDS: SULFAMETHOXAZOLE/TRIMETHOPRIM 800MG/160MG D.S. TABLET PO SCH ×3 (00:03→22:25)
[2017-09-26] MEDS: CYCLOBENZAPRINE HCL 5 MG TABLET PO SCH ×4 (00:04→22:25)
[2017-09-26] MEDS: diazePAM 5 MG TABLET PO PRN ×2 (06:10→14:23)
[2017-09-26] MEDS: ACETAMINOPHEN 325 MG TABLET (FP) PO PRN ×3 (06:14→17:56)
[2017-09-26] MEDS: METHADONE HCL 5 MG TABLET (FOR DETOX USE ONLY) PO SCH (10:48)
[2017-09-26] MEDS: PRENATAL VITAMINS W/ FOLIC ACID TABLET (FP) PO SCH (10:48)
[2017-09-26] MEDS: NICOTINE 21 MG/24 HOURS TOPICAL PATCH TD SCH (10:49)
[2017-09-26] MEDS: diazePAM 5 MG TABLET PO SCH ×2 (10:49→22:25)
--- NOTE | 2017-09-26 12:20 | PN ---
Psychiatric Progress Note Vital Signs: Vital Signs Period Temp Pulse Resp BP Sys/Sharma Pulse Ox Last 24 Hr 97.7 F-98.8 F 67-116 16-20 116-128/65-83 Date of Session: 09/26/17 Chief Complaint:: Insomnia HPI: Patient reports insomnia and asking for medications aid. Ambien increased to q10mg po qhs Current Medications: Active Medications Generic Name Dose Route Start Last Admin Trade Name Freq PRN Reason Stop Dose Admin Acetaminophen 650 mg 09/23/17 19:03 09/26/17 10:52 Tylenol - PO 650 mg Q4H PRN Administration FEVER Al Hydroxide/Mg Hydroxide 30 ml 09/23/17 19:03 Mylanta Oral Suspension - PO Q6H PRN DYSPEPSIA Colloidal Oatmeal 1 applic 09/25/17 11:04 09/25/17 11:25 Aveeno Soap - TP 1 applic DAILY PRN Administration HYGEINE Cyclobenzaprine HCl 5 mg 09/23/17 22:00 09/26/17 06:10 Cyclobenzaprine Hcl PO 5 mg TID ANGELINA Administration Diazepam 5 mg 09/25/17 10:00 09/26/17 10:49 Valium - PO 09/26/17 22:01 5 mg BID ANGELINA Administration Diazepam 5 mg 09/27/17 10:00 Valium - PO 09/27/17 10:01 DAILY ANGELINA Diazepam 10 mg 09/23/17 19:03 09/26/17 06:10 Valium - PO 09/26/17 19:03 10 mg Q4H PRN Administration WITHDRAWAL(CONT SUBST) Eucalyptus/Menthol/Phenol/Sorbitol 1 each 09/23/17 19:03 Cepastat Lozenge - MM Q4H PRN SORE THROAT Guaifenesin 10 ml 09/23/17 19:03 Robitussin Dm - PO Q6H PRN COUGH Hydroxyzine Pamoate 50 mg 09/23/17 19:03 Vistaril - PO Q4H PRN AGITATION Loperamide HCl 4 mg 09/23/17 19:03 Imodium - PO Q6H PRN DIARRHEA Magnesium Citrate 300 ml 09/23/17 19:03 Citroma - PO Q48H PRN CONSTIPATION Magnesium Hydroxide 30 ml 09/23/17 19:03 Milk Of Magnesia - PO DAILY PRN CONSTIPATION Methadone HCl 10 mg 09/27/17 10:00 Dolophine - PO 09/27/17 10:01 DAILY ANGELINA Methadone HCl 5 mg 09/28/17 06:00 Dolophine - PO 09/28/17 06:01 DAILY@0600 ANGELINA Nicotine 21 mg 09/24/17 10:00 09/26/17 10:49 Nicoderm Patch - TD 21 mg DAILY ANGELINA Administration Nicotine Polacrilex 2 mg 09/23/17 19:03 Nicorette Gum - BC Q2H PRN NICOTINE REPLACEMENT RX Multivit/Folic Acid/Iron 1 tab 09/24/17 10:00 09/26/17 10:48 Vitamins (Sjr) - PO 1 tab DAILY ANGELINA Administration Pseudoephedrine/Triprolidine 1 combo 09/23/17 19:03 Actifed - PO TID PRN NASAL CONGESTION Thiamine HCl 100 mg 09/23/17 22:00 09/25/17 23:07 Vitamin B1 - PO 100 mg HS AGNELINA Administration Trimethoprim/Sulfamethoxazole 1 each 09/24/17 12:15 09/26/17 10:48 Bactrim Ds - PO 09/27/17 11:44 1 each BID ANGELINA Administration Zolpidem Tartrate 5 mg 09/24/17 22:00 09/25/17 23:07 Ambien - PO 09/27/17 21:59 5 mg HS PRN Administration INSOMNIA Medication(s) Change(s): Ambien 10mg po qhs Provider note:: Ambien 10mg po qhs Mental Status Exam - Mental Status Exam Alert and Oriented to: Place, Person Cognitive Function: Fair Patient Appearance: Well Groomed Mood: Apprehensive Affect: Mood Congruent Patient Behavior: Cooperative Speech Pattern: Appropriate Voice Loudness: Normal Thought Process: Goal Oriented Thought Disorder: Being Controlled Hallucinations: Denies Suicidal Ideation: Denies Homicidal Ideation: Denies Insight/Judgement: Fair Sleep: Difficulty falling asleep Appetite: Fair Muscle strength/Tone: Normal Gait/Station: Normal Additional Comments: Ambien 10mg po qhs Psychiatric Treatment Plan - Problem List (1) Alcohol induced insomnia Current Visit: Yes (2) Cannabis dependence, uncomplicated Current Visit: Yes (3) Opioid dependence with withdrawal Current Visit: Yes (4) Sedative, hypnotic or anxiolytic dependence with withdrawal, unspecified Current Visit: Yes (5) Agitation states as acute reaction to exceptional (gross) stress Current Visit: No (6) Alcohol dependence with uncomplicated withdrawal Current Visit: No Initial treatment plan: Ambien 10mg po qhs
--- NOTE | 2017-09-26 13:43 | PN ---
[facility] Progress Note (SOAP) Subjective: body ache joint pain sweat tremor restlessness Objective: 09/26/17 13:49 Vital Signs Temperature 97.7 F 09/26/17 09:38 Pulse Rate 102 H 09/26/17 09:38 Respiratory Rate 18 09/26/17 09:38 Blood Pressure 128/65 09/26/17 09:38 O2 Sat by Pulse Oximetry (%) Laboratory Last Values WBC 6.2 K/mm3 (4.0-10.0) 09/24/17 10:10 RBC 4.64 M/mm3 (3.60-5.2) 09/24/17 10:10 Hgb 13.5 GM/dL (10.7-15.3) 09/24/17 10:10 Hct 41.5 % (32.4-45.2) D 09/24/17 10:10 MCV 89.5 fl (80-96) 09/24/17 10:10 MCH 29.0 pg (25.7-33.7) 09/24/17 10:10 MCHC 32.4 g/dl (32.0-36.0) 09/24/17 10:10 RDW 15.9 % (11.6-15.6) H 09/24/17 10:10 Plt Count 252 K/MM3 (134-434) D 09/24/17 10:10 MPV 8.9 fl (7.5-11.1) 09/24/17 10:10 Sodium 140 mmol/L (136-145) 09/24/17 10:10 Potassium 4.1 mmol/L (3.5-5.1) 09/24/17 10:10 Chloride 103 mmol/L (98-107) 09/24/17 10:10 Carbon Dioxide 25 mmol/L (21-32) 09/24/17 10:10 Anion Gap 12 (8-16) 09/24/17 10:10 BUN 8 mg/dL (7-18) 09/24/17 10:10 Creatinine 1.0 mg/dL (0.55-1.02) 09/24/17 10:10 Creat Clearance w eGFR > 60 (>60) 09/24/17 10:10 Random Glucose 94 mg/dL (74-106) 09/24/17 10:10 Calcium 9.5 mg/dL (8.5-10.1) 09/24/17 10:10 Total Bilirubin 0.4 mg/dL (0.2-1.0) 09/24/17 10:10 AST 13 U/L (15-37) L 09/24/17 10:10 ALT 26 U/L (12-78) 09/24/17 10:10 Alkaline Phosphatase 63 U/L (45-117) 09/24/17 10:10 Total Protein 7.5 g/dl (6.4-8.2) 09/24/17 10:10 Albumin 4.4 g/dl (3.4-5.0) 09/24/17 10:10 Urine Color Yellow 09/23/17 Unknown Urine Appearance Cloudy 09/23/17 Unknown Urine pH 6.0 (5.0-8.0) 09/23/17 Unknown Ur Specific [place] 1.018 (1.001-1.035) 09/23/17 Unknown Urine Protein Negative (NEGATIVE) 09/23/17 Unknown Urine Glucose (UA) Negative (NEGATIVE) 09/23/17 Unknown Urine Ketones Negative (NEGATIVE) 09/23/17 Unknown Urine Blood 1+ (NEGATIVE) H 09/23/17 Unknown Urine Nitrite Negative (NEGATIVE) 09/23/17 Unknown Urine Bilirubin Negative (<2.0 mg/dL) 09/23/17 Unknown Urine Urobilinogen Negative mg/dL (0.2-1.0) 09/23/17 Unknown Ur Leukocyte Esterase 3+ (NEGATIVE) H 09/23/17 Unknown Urine WBC (Auto) 90 /hpf (3-5) 09/23/17 Unknown Urine RBC (Auto) 18 /hpf (0-3) 09/23/17 Unknown Ur Epithelial Cells Many /HPF (FEW) 09/23/17 Unknown Urine Bacteria Moderate /hpf (NONE SEEN) 09/23/17 Unknown Urine Mucus Rare 09/23/17 Unknown RPR Titer Nonreactive (NONREACTIVE) 09/24/17 10:10 lab noted Assessment: 09/26/17 13:50 withdrawal sx uti Plan: continue detox bactrim ds
[2017-09-26] MEDS: hydrOXYzine PAMOATE 50 MG CAPSULE (FP) PO PRN (17:56)
[2017-09-26] MEDS: THIAMINE HCL 100 MG TABLET (FP) PO SCH (22:25)
[2017-09-26] MEDS: ZOLPIDEM TARTRATE 10 MG TABLET (PARK CARE ONLY) PO PRN (22:28)
[2017-09-27] MEDS: CYCLOBENZAPRINE HCL 5 MG TABLET PO SCH ×3 (05:44→22:34)
[2017-09-27] MEDS: hydrOXYzine PAMOATE 50 MG CAPSULE (FP) PO PRN (05:46)
[2017-09-27] MEDS ORDERED: METHADONE HCL 10 MG TABLET (FOR DETOX USE ONLY) PO SCH (10:00)
[2017-09-27] MEDS ORDERED: diazePAM 5 MG TABLET PO SCH (10:00)
[2017-09-27] MEDS: PRENATAL VITAMINS W/ FOLIC ACID TABLET (FP) PO SCH (11:05)
[2017-09-27] MEDS: NICOTINE 21 MG/24 HOURS TOPICAL PATCH TD SCH (11:05)
[2017-09-27] MEDS: SULFAMETHOXAZOLE/TRIMETHOPRIM 800MG/160MG D.S. TABLET PO SCH (11:08)
--- NOTE | 2017-09-27 12:43 | PN ---
[facility] Progress Note (SOAP) Subjective: 27 yo female with hx of nicotine, heroin and xanax dependence. No complaints today Objective: 09/27/17 12:42 CBC, BMP 09/24/17 10:10 09/24/17 10:10 Vital Signs - 24 hr 09/26/17 09/26/17 09/26/17 14:02 18:12 22:58 Temperature 98.1 F 98.2 F 98.2 F Pulse Rate 96 H 82 83 Respiratory 18 18 16 Rate Blood Pressure 148/65 139/85 114/71 09/27/17 09/27/17 09/27/17 00:30 03:30 06:24 Temperature 97.7 F Pulse Rate 74 Respiratory 18 16 18 Rate Blood Pressure 106/66 09/27/17 11:30 Temperature 97.1 F L Pulse Rate 111 H Respiratory 20 Rate Blood Pressure 119/71 VS stable grossly nl PE Assessment: 09/27/17 12:42 continue methadone/valium detox Plan: continue detox protocol
[2017-09-27] MEDS: ZOLPIDEM TARTRATE 10 MG TABLET (PARK CARE ONLY) PO PRN (22:34)
[2017-09-27] MEDS: THIAMINE HCL 100 MG TABLET (FP) PO SCH (22:34)
[2017-09-28] MEDS ORDERED: METHADONE HCL 5 MG TABLET (FOR DETOX USE ONLY) PO SCH (06:00)
[2017-09-28] MEDS: CYCLOBENZAPRINE HCL 5 MG TABLET PO SCH (06:03)
[2017-09-28] MEDS: ACETAMINOPHEN 325 MG TABLET (FP) PO PRN (06:04)
--- NOTE | 2017-09-28 09:11 | PN ---
[facility] Progress Note (SOAP) Subjective: ALERT,NO COMPLAINT Objective: 09/28/17 09:08 Vital Signs Temperature 95.9 F L 09/28/17 06:35 Pulse Rate 71 09/28/17 06:35 Respiratory Rate 18 09/28/17 06:35 Blood Pressure 122/61 09/28/17 06:35 O2 Sat by Pulse Oximetry (%) DETOX COMPLETED,NO WITHDRAWAL SYMPTOM Assessment: 09/28/17 09:11 DETOX COMPLETED Plan: DISCHARGE TODAY
--- NOTE | 2017-09-28 09:17 | DS ---
[facility] Detox Discharge Summary Admission Date: 09/23/17 Discharge Date: 09/28/17 - History Present History: Opioid Dependence, Sedative Dependence Additional Comments: FOLLOW UP WITH AFTER CARE PROGRAM ARRANGEMENT Pertinent Past History: GERD SEIZURE - Physical Exam Results Vital Signs: Vital Signs Temperature 95.9 F L 09/28/17 06:35 Pulse Rate 71 09/28/17 06:35 Respiratory Rate 18 09/28/17 06:35 Blood Pressure 122/61 09/28/17 06:35 O2 Sat by Pulse Oximetry (%) Pertinent Admission Physical Exam Findings: WITHDRAWAL SIGNS AND SYMPTOM Laboratory Last Values WBC 6.2 K/mm3 (4.0-10.0) 09/24/17 10:10 RBC 4.64 M/mm3 (3.60-5.2) 09/24/17 10:10 Hgb 13.5 GM/dL (10.7-15.3) 09/24/17 10:10 Hct 41.5 % (32.4-45.2) D 09/24/17 10:10 MCV 89.5 fl (80-96) 09/24/17 10:10 MCH 29.0 pg (25.7-33.7) 09/24/17 10:10 MCHC 32.4 g/dl (32.0-36.0) 09/24/17 10:10 RDW 15.9 % (11.6-15.6) H 09/24/17 10:10 Plt Count 252 K/MM3 (134-434) D 09/24/17 10:10 MPV 8.9 fl (7.5-11.1) 09/24/17 10:10 Sodium 140 mmol/L (136-145) 09/24/17 10:10 Potassium 4.1 mmol/L (3.5-5.1) 09/24/17 10:10 Chloride 103 mmol/L (98-107) 09/24/17 10:10 Carbon Dioxide 25 mmol/L (21-32) 09/24/17 10:10 Anion Gap 12 (8-16) 09/24/17 10:10 BUN 8 mg/dL (7-18) 09/24/17 10:10 Creatinine 1.0 mg/dL (0.55-1.02) 09/24/17 10:10 Creat Clearance w eGFR > 60 (>60) 09/24/17 10:10 Random Glucose 94 mg/dL (74-106) 09/24/17 10:10 Calcium 9.5 mg/dL (8.5-10.1) 09/24/17 10:10 Total Bilirubin 0.4 mg/dL (0.2-1.0) 09/24/17 10:10 AST 13 U/L (15-37) L 09/24/17 10:10 ALT 26 U/L (12-78) 09/24/17 10:10 Alkaline Phosphatase 63 U/L (45-117) 09/24/17 10:10 Total Protein 7.5 g/dl (6.4-8.2) 09/24/17 10:10 Albumin 4.4 g/dl (3.4-5.0) 09/24/17 10:10 Urine Color Yellow 09/23/17 Unknown Urine Appearance Cloudy 09/23/17 Unknown Urine pH 6.0 (5.0-8.0) 09/23/17 Unknown Ur Specific [place] 1.018 (1.001-1.035) 09/23/17 Unknown Urine Protein Negative (NEGATIVE) 09/23/17 Unknown Urine Glucose (UA) Negative (NEGATIVE) 09/23/17 Unknown Urine Ketones Negative (NEGATIVE) 09/23/17 Unknown Urine Blood 1+ (NEGATIVE) H 09/23/17 Unknown Urine Nitrite Negative (NEGATIVE) 09/23/17 Unknown Urine Bilirubin Negative (<2.0 mg/dL) 09/23/17 Unknown Urine Urobilinogen Negative mg/dL (0.2-1.0) 09/23/17 Unknown Ur Leukocyte Esterase 3+ (NEGATIVE) H 09/23/17 Unknown Urine WBC (Auto) 90 /hpf (3-5) 09/23/17 Unknown Urine RBC (Auto) 18 /hpf (0-3) 09/23/17 Unknown Ur Epithelial Cells Many /HPF (FEW) 09/23/17 Unknown Urine Bacteria Moderate /hpf (NONE SEEN) 09/23/17 Unknown Urine Mucus Rare 09/23/17 Unknown RPR Titer Nonreactive (NONREACTIVE) 09/24/17 10:10 Vital Signs Temperature 95.9 F L 09/28/17 06:35 Pulse Rate 71 09/28/17 06:35 Respiratory Rate 18 09/28/17 06:35 Blood Pressure 122/61 09/28/17 06:35 O2 Sat by Pulse Oximetry (%) - Treatment Hospital Course: Detox Protocol Followed, Detoxed Safely, Responded well, Discharged Condition Good Patient has Accepted a Rehab Referral to: DECLINED - Medication Discharge Medications: Ambulatory Orders Sulfamethoxazole/Trimethoprim [Bactrim DS -] 1 each PO BID #7 tablet 09/26/17 - Diagnosis (1) Opioid dependence with withdrawal Current Visit: Yes Status: Acute (2) Sedative, hypnotic or anxiolytic dependence with withdrawal, unspecified Current Visit: Yes Status: Acute (3) GERD (gastroesophageal reflux disease) Current Visit: Yes Status: Chronic Qualifiers: Esophagitis presence: esophagitis presence not specified Qualified Code(s) : K21.9 - Gastro-esophageal reflux disease without esophagitis (4) History of seizure Current Visit: Yes Status: Chronic - AMA Did Patient Leave Against Medical Advice: No
[2017-09-28 09:26] VITALS: BP 121/95; PULSE 84; TEMP 97.7
[2017-09-28] MEDS ORDERED: SULFAMETHOXAZOLE/TRIMETHOPRIM 800MG/160MG D.S. TABLET PO SCH (10:00)
== END 2017-09-28 10:20 | disposition home or self-care (01) | DRG 773 ==
LOC: YASAS 15:16 → Y6N 18:28
PROVIDERS: ADMIT Surgery; ATTEND Surgery
PROC: HZ2ZZZZ Detoxification Services for Substance Abuse Treatment (ICD-10-PCS; principal; 2017-09-23)
DX: F11.23 Opioid dependence with withdrawal (principal); F13.230 Sedative, hypnotic or anxiolytic dependence with withdrawal, uncomplicated; F10.230 Alcohol dependence with withdrawal, uncomplicated; F12.20 Cannabis dependence, uncomplicated; F10.282 Alcohol dependence with alcohol-induced sleep disorder; R45.1 Restlessness and agitation; F43.0 Acute stress reaction; D64.9 Anemia, unspecified; N39.0 Urinary tract infection, site not specified; K21.9 Gastro-esophageal reflux disease without esophagitis; Z59.0 Homelessness
CPT/HCPCS: 36415; 80053; 81003; 81015; 85027; 86593; 93005; 93010

== ENCOUNTER 2020-02-01 10:53 | Emergency (ER) | payer BC, OTHER ==
[2020-02-01 11:26] VITALS: TEMP 98.7; BMI 27.8
[2020-02-01 14:44] VITALS: BP 145/85; PULSE 130
== END 2020-02-01 15:01 | disposition home or self-care (01) ==
LOC: JER 10:53
PROC: 3E023GC Introduction of Other Therapeutic Substance into Muscle, Percutaneous Approach (ICD-10-PCS; principal; 2020-02-01)
DX: F44.5 Conversion disorder with seizures or convulsions (principal)
CPT/HCPCS: 70450-TC; 82962; 99284-25